=== PATIENT | female | born 1945 | race Caucasian/White ===

== ENCOUNTER 2020-02-05 07:22 | Outpatient (REF) | payer MEDICARE, SELFPAY ==
[2020-02-05 08:31] LABS: MANUAL DIFF FLAG NO
[2020-02-05 08:36] LABS: Basophils Percent Auto 0.8 % (0-2); Eosinophils Absolute Auto 0.2 X10*3/uL (0.0-0.4); Eosinophils Percent Auto 3.1 % (0-4); Hematocrit 39.8 % (37-47); Hemoglobin 12.9 g/dl (12.0-16.0); Imm Gran Abs Auto 0.01 X10*3/uL (0.00-0.03); Imm Gran Pct Auto 0.2 % (0.0-0.4); Lymphocytes Absolute Auto 1.6 X10*3/uL (1.2-4.9); Lymphocytes Percent Auto 33.2 % (20-40); Mean Corpuscular HGB Conc 32.4 g/dl (31.0-35.0); Mean Corpuscular Hemoglobin 31.7 pg (27.0-33.0); Mean Corpuscular Volume 97.8 fL (80-98); Mean Platelet Volume 8.3 fL (9.4-12.3); Monocytes Absolute Auto 0.5 X10*3/uL (0.1-1.2); Monocytes Percent Auto 10.6 % (2-11); Neutrophils Absolute Auto 2.5 X10*3/uL (2.0-8.3); Neutrophils Percent Auto 52.1 % (45-73); Platelet Count 238 X10*3/uL (160-400); Red Blood Count 4.07 X10*6/uL (4.20-5.50); Red Cell Distribution Width 12.5 % (11.0-16.0); White Blood Count 4.8 X10*3/uL (4.8-10.8)
[2020-02-05 08:38] LABS: Glucose Urine UA NEG (NEG); Leukocyte Esterase Urine 1+ (NEG); Nitrite Urine NEG (NEG); PH 5.5 (5.0-8.0); Specific Gravity - Urine 1.025 (1.005-1.025); Urine Blood 1+ (NEG); Urine Ketones NEG (NEG); Urine Protein NEG (NEG-TRACE)
[2020-02-05 08:39] LABS: Appearance Urine HAZY; Color Urine YELLOW
[2020-02-05 08:54] LABS: Alanine Aminotransferase 26 U/L (0-31); Alkaline Phosphatase 59 U/L (39-117); Anion Gap 10 (12-20); Aspartate Amino Transferase 28 U/L (5-31); Bilirubin Total 0.4 mg/dL (0.0-1.0); Blood Urea Nitrogen 17 mg/dL (9-16); Calcium 8.9 mg/dL (8.4-10.2); Carbon Dioxide 26 mmol/L (22-29); Chloride 109 mmol/L (96-108); Cholesterol 192 mg/dL; Estimated Glomerular Filt Rate > 60; Glucose Fasting 95 mg/dL (60-99); HDL Cholesterol 67 mg/dL; LDL Cholesterol Calculated 114 mg/dl; Potassium 4.1 mmol/l (3.3-5.1); Sodium 141 mmol/L (135-145); Total Protein 6.6 g/dL (6.5-8.0); Triglycerides 58 mg/dL
[2020-02-05 08:57] LABS: Bacteria Urine TRACE /LPF; Mucus Urine 1+ /LPF; Renal Epithelial Cells Urine 1+ /LPF; Squamous Epithelial Cell Urine 1+ /LPF
[2020-02-05 11:00] LABS: Folate 17.8 ng/mL (> or = 4.0); Vitamin B12 > 2000 pg/mL (200-900)
== END 2020-02-05 07:23 | disposition home or self-care (01) ==
LOC: HO.LAB 07:22
PROVIDERS: PCP Internal Medicine; Visit Provider Internal Medicine
DX: M85.80 Other specified disorders of bone density and structure, unspecified site (principal); E78.00 Pure hypercholesterolemia, unspecified; Z87.448 Personal history of other diseases of urinary system
CPT/HCPCS: 36415; 80053; 80061; 81001; 82607; 82746; 85025

== ENCOUNTER 2020-05-14 14:45 | Outpatient (REF) | payer MEDICARE, SELFPAY ==
--- NOTE | 2020-05-14 14:49 | MM_ITS ---
EXAMINATION: MM SCREENING DIGITAL BREAST TOMOSYNTHESIS, BILATERAL CLINICAL INFORMATION: Screening. Asymptomatic. The lifetime risk of breast cancer based on the Tyrer-Cuzick Model is 7%. COMPARISON: Mammography: 10/06/2018, 09/14/2017, 08/31/2016 TECHNIQUE: Digital breast tomosynthesis is performed in both the craniocaudal and mediolateral oblique views along with computer-aided detection (CAD). Synthesized 2D images are generated from the tomosynthesis. FINDINGS: There are scattered areas of fibroglandular density (ACR BI-RADS breast composition Category b). Breast tissue composition borders on heterogeneously dense. Parenchymal pattern is similar to prior exams. There are no significant masses, abnormal calcifications, or other abnormalities. No significant changes. MM/MM tomosynthesis screening BI IMPRESSION: No mammographic evidence of malignancy. ASSESSMENT: BI-RADS 1: Negative RECOMMENDATION: Routine annual mammography screening. This patient's information was entered into a reminder system with a target due date for their next mammogram.
== END 2020-05-14 14:46 | disposition home or self-care (01) ==
LOC: HO.MAMMO 14:45
PROVIDERS: PCP Internal Medicine; Visit Provider Internal Medicine
DX: Z12.31 Encounter for screening mammogram for malignant neoplasm of breast (principal)
CPT/HCPCS: 77063; 77067

== ENCOUNTER 2020-10-28 08:15 | Day surgery (SDC) | payer MEDICARE, SELFPAY ==
[2020-10-23 09:27] VITALS: BMI 31.2
--- NOTE | 2020-10-27 09:04 | HO.ANESPROP2 ---
HPI - Anesthesia Eval Consult details Narrative: 75yo F for Colonoscopy PMFSH Past Medical History Medical History Asthma Surgical History Surgical History History of tonsillectomy and adenoidectomy Hx of colonoscopy Social History Social History Patient Tobacco Use Status: Former Tobacco user Quit Date: 1999 Use of substances other than those prescribed or required for medical reasons: No Are you DNR?: No Advance Directives: No Advance Directives Information Provided: No Advance Directives on File: No Meds Allergies Allergy/AdvReac Type Severity Reaction Status Date / Time No Known Allergies Allergy Verified 10/28/20 08:28 Home Medications Medication Instructions Recorded Confirmed Last Taken Type albuterol sulfate 2 puff INHALATION Q4-6H PRN 10/23/20 10/23/20 Unknown History Exam Exam Date and Time: October 27, 2020 0904 Height,Weight and Vital Signs: Height 5 ft Weight 72.575 kg Assessment and Plan Assessment Anesthesia Assessment: Chart Reviewed
[2020-10-28 08:33] VITALS: BP 133/70; PULSE 69; RESP 18; TEMP 36.1; O2SAT 98
[2020-10-28] MEDS: Lactated Ringers 1,000 ML 100 ML IVCONT (08:43)
--- NOTE | 2020-10-28 08:56 | P.CONAN_ITS ---
[facility] Past Medical History Medical History Asthma Surgical History Surgical History History of tonsillectomy and adenoidectomy Hx of colonoscopy Social History Social History Patient Tobacco Use Status: Former Tobacco user Quit Date: 1999 Use of substances other than those prescribed or required for medical reasons: No Are you DNR?: No Advance Directives: No Advance Directives Information Provided: No Advance Directives on File: No Meds Allergies Allergy/AdvReac Type Severity Reaction Status Date / Time No Known Allergies Allergy Verified 10/28/20 08:28 Active Medications: Current Medications Generic Name Dose Route Start Last Admin Trade Name Freq PRN Reason Stop Dose Admin Albuterol Sulfate 2.5 mg 10/28/20 08:22 Albuterol Sulfate (0.083%) 2.5 Mg/3 Ml Vial.Neb INHALE ONCE PRN Shortness of Breath/Wheezing Lactated Ringer's 1,000 mls @ 100 mls/hr 10/28/20 08:30 10/28/20 08:43 Lr IVCONT 100 mls/hr .Q10H ELOINA Administration Home Medications Medication Instructions Recorded Confirmed Last Taken Type albuterol sulfate 2 puff INHALATION Q4-6H PRN 10/23/20 10/23/20 Unknown History Exam Exam Date and Time: October 28, 2020 0856 Height,Weight and Vital Signs: Height 5 ft Weight 72.575 kg Last Vital Signs Temp 96.9 F 10/28/20 08:33 Pulse 69 10/28/20 08:33 Resp 18 10/28/20 08:33 BP 133/70 10/28/20 08:33 Pulse Ox 98 10/28/20 08:33 Airway Mallampati Class: II TM Dist: >3cm Neck ROM: Full Heart: RRR Lungs: CTA
--- NOTE | 2020-10-28 09:14 | MHC.SHP ---
Pre-Procedural Eval Section A Date of Service: 10/28/20 The patient is an INPATIENT: No Changes since office visit: No Cold of Flu in the past 2 weeks, No New Medical Problems, No Changes in Medication and No Patient answered all questions The History & Physical has been completed within 30 days and I have reviewed it.: Yes Section B Chief Complaint: screening Allergies: Allergies Allergy/AdvReac Type Severity Reaction Status Date / Time No Known Allergies Allergy Verified 10/28/20 08:28 Plan I have reviewed the history and physical and performed a pertinent physical examination on my patient. No changes have occurred unless specified.
--- NOTE | 2020-10-28 09:44 | P.BOP_ITS ---
Brief Operative Note Date of Service: 10/28/20 Pre-op diagnosis: screening Post-op diagnosis: same Surgeon: Elliot Espinosa Anesthesia: MAC Was an Siding Coreboard Inspector used for this Procedure?: No Estimated blood loss (mL): 0 Pathology: none sent Condition: stable Disposition: PACU
[2020-10-28 09:47] VITALS: BP 95/45; PULSE 72; RESP 16; TEMP 36.6; O2SAT 97
[2020-10-28 10:01] VITALS: BP 115/66; PULSE 70; RESP 16; TEMP 36.6; O2SAT 97
--- NOTE | 2020-10-28 11:13 | HO.POSTANES ---
Post Anesthesia Evaluation Post Anesthesia Evaluation Vital Signs: Vital Signs Temp Pulse Resp BP Pulse Ox 10/28/20 10:01 97.8 F 70 16 115/66 97 10/28/20 09:47 97.8 F 72 16 95/45 L 97 10/28/20 08:33 96.9 F 69 18 133/70 98 Anesthesia: Monitored Mental Status: Awake Pain Control: Satisfactory Nausea/Vomiting: None Hydration: Adequate Anesthesia-Related Issues: No Anes. Related Issues
--- NOTE | 2020-10-28 20:13 | OP_ITS ---
SURGEON: Elliot Espinosa MD INDICATIONS: Colon cancer screening. PREOPERATIVE DIAGNOSIS: POSTOPERATIVE DIAGNOSIS: PROCEDURE PERFORMED: Colonoscopy to the terminal ileum. ESTIMATED BLOOD LOSS: COMPLICATIONS: ANESTHESIA: ASSISTANTS: SPECIMENS: MEDICATIONS: Monitored anesthesia care. DESCRIPTION OF PROCEDURE: History and physical performed. The risks and benefits of the procedure were explained to the patient. Informed consent was obtained. The patient was placed in a left lateral decubitus position. A digital rectal exam was performed and was found to be normal. The Olympus pediatric video colonoscope was introduced into the rectum and advanced to the cecum without difficulty. The cecum was identified by transillumination, palpation, and identification of ileocecal valve. Examination was performed and the scope was removed. She tolerated the procedure well and was taken to recovery area in stable condition. FINDINGS: The terminal ileum was examined and appeared normal. The visualized colonic mucosa was normal. The quality of the prep was good. There was mild sigmoid diverticulosis. Retroflexed examination was normal. No polyps were identified. IMPRESSION: Normal colonoscopy. RECOMMENDATIONS: 1. Follow up as needed. 2. Repeat colonoscopy is recommended in 10 years for average risk individuals. Screening is optional after age 75. MD CARLOS A Ornelas/[facility] / [id number]
== END 2020-10-28 10:33 | disposition home or self-care (01) ==
PROVIDERS: PCP Internal Medicine; Visit Provider Internal Medicine Gastroenterology
PROC: 0DJD8ZZ Inspection of Lower Intestinal Tract, Via Natural or Artificial Opening Endoscopic (ICD-10-PCS; CPT 45378; principal; 2020-10-28 09:30)
DX: Z12.11 Encounter for screening for malignant neoplasm of colon (principal); K57.30 Diverticulosis of large intestine without perforation or abscess without bleeding; J45.909 Unspecified asthma, uncomplicated; Z80.41 Family history of malignant neoplasm of ovary; Z79.899 Other long term (current) drug therapy; Z79.1 Long term (current) use of non-steroidal anti-inflammatories (NSAID); Z87.891 Personal history of nicotine dependence
CPT/HCPCS: G0121

== ENCOUNTER 2020-11-04 08:33 | Outpatient (REF) | payer MEDICARE, SELFPAY ==
--- NOTE | ~2020-11-04 | MM_ITS ---
EXAMINATION: BONE DENSITOMETRY CLINICAL INDICATION: Osteopenia. COMPARISON: Previous BD dated 10/24/2018 and baseline BD dated 10/19/2016. TECHNIQUE: Using a [employer] DXA System (software version: 13.1) manufactured by [employer], dual-energy x-ray absorptiometry was performed of the lumbar spine and left hip. The images are of good technical quality. Summary results are attached. FINDINGS: AP SPINE L1-L4: Current: BMD 1.007 g/cm2, Z-score 0.0, T-score -1.4, osteopenia, 3.7% decrease from previous, -1.4% decrease from baseline (<5% change is not significant). Prior: BMD 1.046 g/cm2. Baseline: BMD 1.021 g/cm2. LEFT FEMUR, NECK: Current: BMD 0.783 g/cm2, Z-score -0.1, T-score -1.8, osteopenia. Prior: BMD 0.841 g/cm2. Baseline: BMD 0.831 g/cm2. LEFT FEMUR, TOTAL: Current: BMD 0.877 g/cm2, Z-score 0.4, T-score -1.0, normal, 3.4% decrease from previous, 0.9% decrease from baseline (<5% change is not significant). Prior: BMD 0.908 g/cm2. Baseline: BMD 0.885 g/cm2. IDENTIFIED RISK FACTORS: Menopause. HISTORY OF FRACTURE: None listed. MEDICATIONS: Calcium supplements or multivitamin, vitamin D. MM/XR DEXA axial skeleton IMPRESSION: 1. DIAGNOSIS: Osteopenia based on the lowest T-score value of -1.8 in the femoral neck applying World Health Organization criteria. 2. 10-YEAR FRACTURE RISK PREDICTION, FRAX: Major osteoporotic fracture (clinical spine, forearm, hip or shoulder) 11.7%. Hip fracture 2.5%. 3. Treatment Recommendations: NOF guidelines recommend consideration for treatment in postmenopausal women and men age 50 and older presenting with the following: -A hip or vertebral (clinical or morphometric) fracture. -T-score less than or equal to -2.5 at the femoral neck or spine after appropriate evaluation to exclude secondary causes. -Low bone mass at the hip or spine and a 10-year fracture probability by FRAX of greater than or equal to 3% for hip fracture or greater than or equal to 20% for major osteoporotic fracture based on the [place] adapted WHO algorithm. 4. Other Recommendations: All treatment decisions require clinical judgment and consideration of individual patient factors, including patient preferences, comorbidities, previous drug use, risk factors not captured in the FRAX model (e.g. frailty, falls, vitamin D deficiency, increased bone turnover, interval significant decline in bone density) and possible under or overestimation of fracture risk by FRAX. Additional medical evaluation for secondary cause of low bone mineral density may be appropriate. FUTURE SCAN RECOMMENDATION: People with diagnosed cases of osteoporosis or at high risk for fracture should have regular bone mineral density tests. For patients eligible for Medicare, routine testing is allowed once every 2 years. The testing frequency can be increased to one year for patients who have rapidly progressing disease, those who are receiving or discontinuing medical therapy to restore bone mass, or have additional risk factors.
== END 2020-11-04 08:34 | disposition home or self-care (01) ==
LOC: HO.MAMMO 08:33
PROVIDERS: Visit Provider Internal Medicine
DX: Z13.820 Encounter for screening for osteoporosis (principal); M85.89 Other specified disorders of bone density and structure, multiple sites; Z78.0 Asymptomatic menopausal state
CPT/HCPCS: 77080

== ENCOUNTER 2021-02-17 10:34 | Outpatient (REF) | payer MEDICARE, SELFPAY ==
[2021-02-17 10:36] LABS: MANUAL DIFF FLAG NO
[2021-02-17 11:21] LABS: Basophils Percent Auto 0.5 % (0-2); Eosinophils Absolute Auto 0.2 X10*3/uL (0.0-0.4); Eosinophils Percent Auto 3.1 % (0-4); Hematocrit 40.3 % (37-47); Hemoglobin 12.9 g/dl (12.0-16.0); Imm Gran Abs Auto 0.01 X10*3/uL (0.00-0.03); Imm Gran Pct Auto 0.2 % (0.0-0.4); Lymphocytes Absolute Auto 1.9 X10*3/uL (1.2-4.9); Lymphocytes Percent Auto 33.3 % (20-40); Mean Corpuscular Hemoglobin 31.9 pg (27.0-33.0); Mean Corpuscular Volume 99.5 fL (80-98); Mean Platelet Volume 8.7 fL (9.4-12.3); Monocytes Absolute Auto 0.8 X10*3/uL (0.1-1.2); Monocytes Percent Auto 13.2 % (2-11); Neutrophils Absolute Auto 2.9 X10*3/uL (2.0-8.3); Neutrophils Percent Auto 49.7 % (45-73); Platelet Count 240 X10*3/uL (160-400); Red Blood Count 4.05 X10*6/uL (4.20-5.50); Red Cell Distribution Width 12.8 % (11.0-16.0); White Blood Count 5.8 X10*3/uL (4.8-10.8)
[2021-02-17 11:40] LABS: Alanine Aminotransferase 17 U/L (0-31); Albumin Level 3.8 g/dL (3.5-5.0); Alkaline Phosphatase 59 U/L (39-117); Anion Gap 12 (12-20); Aspartate Amino Transferase 21 U/L (5-31); Bilirubin Total 0.4 mg/dL (0.0-1.0); Blood Urea Nitrogen 17 mg/dL (9-16); Calcium 8.7 mg/dL (8.4-10.2); Carbon Dioxide 25 mmol/L (22-29); Chloride 110 mmol/L (96-108); Cholesterol 177 mg/dL; Estimated Glomerular Filt Rate > 60; Glucose Fasting 91 mg/dL (60-99); HDL Cholesterol 62 mg/dL; LDL Cholesterol Calculated 103 mg/dl; Sodium 143 mmol/L (135-145); Total Protein 6.4 g/dL (6.5-8.0); Triglycerides 60 mg/dL
[2021-02-17 11:41] LABS: Reflex LDLD? No
[2021-02-17 12:05] LABS: Appearance Urine HAZY; Color Urine YELLOW; Glucose Urine UA NEG (NEG); Leukocyte Esterase Urine 1+ (NEG); Nitrite Urine NEG (NEG); Specific Gravity - Urine 1.025 (1.005-1.025); Urine Blood NEG (NEG); Urine Ketones NEG (NEG); Urine Protein NEG (NEG-TRACE)
[2021-02-17 12:33] LABS: Bacteria Urine TRACE /LPF; Mucus Urine 1+ /LPF; RBC Urine 0-2 /HPF (0); Renal Epithelial Cells Urine 1+ /LPF; Squamous Epithelial Cell Urine 1+ /LPF
== END 2021-02-17 10:35 | disposition home or self-care (01) ==
LOC: HO.LNP 10:34
PROVIDERS: Visit Provider Internal Medicine
DX: E78.00 Pure hypercholesterolemia, unspecified (principal); R79.9 Abnormal finding of blood chemistry, unspecified
CPT/HCPCS: 80053; 80061; 81001; 81003; 85025

== ENCOUNTER 2022-02-16 11:28 | Outpatient (REF) | payer MEDICARE, SELFPAY ==
[2022-02-16 11:31] LABS: MANUAL DIFF FLAG NO
[2022-02-16 12:06] LABS: Appearance Urine Clear; Basophils Absolute Auto 0.1 X10*3/uL (0.0-0.2); Basophils Percent Auto 0.8 % (0-2); Color Urine Yellow; Eosinophils Absolute Auto 0.2 X10*3/uL (0.0-0.4); Eosinophils Percent Auto 2.7 % (0-4); Glucose Urine UA Negative (Negative); Hematocrit 39.6 % (37.0-47.0); Hemoglobin 12.8 g/dl (12.0-16.0); Imm Gran Abs Auto 0.02 X10*3/uL (0.00-0.03); Imm Gran Pct Auto 0.3 % (0.0-0.4); Leukocyte Esterase Urine Large (3+) (Negative); Lymphocytes Absolute Auto 2.1 X10*3/uL (1.2-4.9); Mean Corpuscular HGB Conc 32.3 g/dl (31.0-35.0); Mean Corpuscular Hemoglobin 31.7 pg (27.0-33.0); Mean Platelet Volume 8.9 fL (9.4-12.3); Monocytes Absolute Auto 0.8 X10*3/uL (0.1-1.2); Monocytes Percent Auto 11.9 % (2-11); Neutrophils Absolute Auto 3.4 x10*3/uL (2.0-8.3); Neutrophils Percent Auto 52.3 % (45-73); Nitrite Urine Negative (Negative); PH 5.5 (5.0-9.0); Platelet Count 260 X10*3/uL (160-400); Red Blood Count 4.04 X10*6/uL (4.20-5.50); Red Cell Distribution Width 12.7 % (11.0-16.0); UMIC TRIGGER UA YES; Urine Blood Negative (Negative); Urine Ketones Negative (Negative); Urine Protein Negative (Neg-Trace); White Blood Count 6.6 X10*3/uL (4.8-10.8)
[2022-02-16 12:10] LABS: Bacteria Urine None Seen (None Seen); Hyaline Casts Urine 0-2 /LPF (0-2); RBC Urine 0-2 /HPF (0-2); Squamous Epithelial Cell Urine 0-2 /HPF (0-2); WBC Urine 21-50 /HPF (0-5)
[2022-02-16 12:40] LABS: Alanine Aminotransferase 20 U/L (0-31); Alkaline Phosphatase 61 U/L (39-117); Anion Gap 15 (12-20); Aspartate Amino Transferase 25 U/L (5-31); Bilirubin Total 0.5 mg/dL (0.0-1.0); Blood Urea Nitrogen 15 mg/dL (9-16); Carbon Dioxide 25 mmol/L (22-29); Chloride 107 mmol/L (96-108); Cholesterol 184 mg/dL; Estimated Glomerular Filt Rate > 60; Glucose Fasting 98 mg/dL (60-99); HDL Cholesterol 70 mg/dL; LDL Cholesterol Calculated 100 mg/dl; Potassium 4.1 mmol/L (3.3-5.1); Sodium 143 mmol/L (135-145); Total Protein 6.9 g/dL (6.5-8.0); Triglycerides 70 mg/dL
== END 2022-02-16 11:29 | disposition home or self-care (01) ==
LOC: HO.LNP 11:28
PROVIDERS: Visit Provider Internal Medicine
DX: E78.00 Pure hypercholesterolemia, unspecified (principal)
CPT/HCPCS: 80053; 80061; 81001; 85025

== ENCOUNTER 2022-06-28 06:06 | Day surgery (SDC) | payer MEDICARE, SELFPAY ==
[2022-06-22 13:12] VITALS: BMI 31.9
[2022-06-22 13:24] VITALS: BMI 31.1
--- NOTE | 2022-06-24 09:00 | MHC.SHP ---
Pre-Procedural Eval Section A Date of Service: 06/24/22 The patient is an INPATIENT: No Changes since office visit: No Cold of Flu in the past 2 weeks, No New Medical Problems, No Changes in Medication and No Patient answered all questions The History & Physical has been completed within 30 days and I have reviewed it.: Yes Section B Chief Complaint: Age-related nuclear cataract, left eye Allergies: Allergies Allergy/AdvReac Type Severity Reaction Status Date / Time No Known Allergies Allergy Verified 10/28/20 08:28 Plan Diagnosis/Plan: Unchanged I have reviewed the history and physical and performed a pertinent physical examination on my patient. No changes have occurred unless specified. Time Spent With Patient Time: Total time managing care of this patient today ____ minutes.
[2022-06-28 06:25] VITALS: BP 143/69; PULSE 73; RESP 16; TEMP 36.3; O2SAT 98
[2022-06-28] MEDS: Lactated Ringers 500 ML 50 ML IV (06:30)
[2022-06-28] MEDS: Tetracaine HCl/PF 0.5% Oph Sol 4 ML DROPS 1 DROP EYE-LEFT (06:30)
[2022-06-28] MEDS: Cyclopentolate 1 % Ophth Sol 2 ML DRPBTL 1 DROP EYE-LEFT ×3 (06:30→06:41)
[2022-06-28] MEDS: Tropicamide 1 % Ophth Sol 3 ML BTL 1 DROP EYE-LEFT ×3 (06:31→06:42)
[2022-06-28] MEDS: Ketorolac Tromethamine 0.5% Op 5 ML DROPS 1 DROP EYE-LEFT ×3 (06:34→06:43)
[2022-06-28] MEDS: Phenylephrine HCL 2.5% Oph SoL 2 ML BOTTLE 1 DROP EYE-LEFT ×3 (06:35→06:45)
--- NOTE | 2022-06-28 07:10 | P.CONAN_ITS ---
[facility] Past Medical History Medical History Asthma Family History Family history of problems with anesthesia: No Surgical History Surgical History (Updated 06/22/22 @ 13:23 by Julissa Hansen RN) History of tonsillectomy and adenoidectomy Hx of colonoscopy History of Problems with Anesthesia: No Social History Social History Are you a primary healthcare or medical to a significant other at home: No Do you presently have visiting nurse or other home services: No Patient Tobacco Use Status: Former Tobacco user Quit Date: 1999 Tobacco use type: Cigarette Use of substances other than those prescribed or required for medical reasons: No Have you been hit, kicked, punched, or otherwise hurt by someone within the past year? If so, by whom?: No Are you DNR?: No Advance Directives: No Advance Directives Information Provided: Yes Advance Directives on File: No Recently lost weight without trying: No Nutrition Risks: No Nutritional Risk Meds Allergies Allergy/AdvReac Type Severity Reaction Status Date / Time No Known Allergies Allergy Verified 10/28/20 08:28 Active Medications: Current Medications Lactated Ringer's (Lr) 500 mls @ 50 mls/hr IV .Q10H ELOINA Stop: 06/28/22 16:14 Last Admin: 06/28/22 06:30 Dose: 50 mls/hr Povidone Iodine (Povidone Iodine 5 % Ophth Soln 30 Ml Bottle) 1 appl EYE-LEFT PREOP PRN PRN Reason: Pre-Op Surgical Implant Prophy Home Medications Medication Instructions Recorded Confirmed Last Taken Type albuterol sulfate 90 mcg/actuation 2 puff inhalation Q4-6H PRN 10/23/20 06/22/22 Unknown History aerosol inhaler Shortness Of Breath Or Wheezing Exam Exam Date and Time: June 28, 2022 0710 Height,Weight and Vital Signs: Height 5 ft 1 in Weight 74.843 kg Last Vital Signs Temp 97.3 F 06/28/22 06:25 Pulse 73 06/28/22 06:25 Resp 16 06/28/22 06:25 BP 143/69 H 06/28/22 06:25 Pulse Ox 98 06/28/22 06:25 O2 Del Method 06/28/22 06:25 Airway Mallampati Class: II (Missing a couple) TM Dist: >3cm Neck ROM: Full Heart: rrr Lungs: cta bl Assessment and Plan Assessment Anesthesia Assessment: Anesthesia Plan Discussed and Chart Reviewed Final Anesthetic Review Family History of Problems with Anesthesia: No History of Problems with Anesthesia: No NPO: Yes ASA Class: II Final Preanesthetic Review: No Changes in Pt Med Stat, Meds/Allgs Chart Reviewed and Consent Obtained/Reviewed Patient Risk: Intermediate Procedure Risk: Intermediate Anesthetic Plan Anesthetic Plan: MAC: Disposition: Standard PACU
--- NOTE | 2022-06-28 07:53 | HO.PNOPHT ---
Ophthalmology Procedure Procedure Date of Service: 06/28/22 Ophthalmology Viscoelastic: Heallaura Duet Dual Pack Pro Ophthalmology Lenses: TECNIS [id number] (24.5) Procedure Notes: PREOPERATIVE DIAGNOSIS: Decreased visual acuity left eye secondary to cataract POSTOPERATIVE DIAGNOSIS: Same PROCEDURE: Left cataract extraction with intraocular lens insertion SURGEON: Robinson Noonan M.D. ANESTHESIA: Topical/MAC ESTIMATED BLOOD LOSS: None COMPLICATIONS: None After obtaining informed consent, the patient was brought to the operation room suite and placed in the supine position. After adequate sedation per anesthesia, topical drops of Tetracaine were given to the left eye. The eye was then prepped and draped in the usual sterile fashion. The operating room microscope was then positioned over the operative eye and a lid speculum placed. A paracentesis was created. Viscoelastic was then instilled into the anterior chamber. A three plane incision was then created temporally, utilizing a 2.85 mm keratome. Capsulotomy forceps were then utilized to create a circular tear capsulotomy. Hydrodissection and hydrodelineation were carried out until adequate mobilization of the nucleus occurred. Phacoemulsification was then utilized to remove the dense central nucleus followed by removal of the cortical material utilizing the automated aspiration irrigation unit. Viscoat elastic was instilled into the posterior capsular bag followed by placement of a posterior chamber intraocular lens without difficulty. The residual Viscoat elastic was then removed utilizing the automated IA machine. The wound was check and found to be watertight. The patient tolerated the procedure well and the lid speculum was removed. Intracameral injection of Vigamox 0.1 mL followed by a subtenon injection of Kenalog-40 0.2 mL were administered. The patient will be seen in the a.m.
[2022-06-28 08:21] VITALS: BP 136/69; PULSE 62; RESP 18; TEMP 36.2; O2SAT 100
== END 2022-06-28 08:25 | disposition home or self-care (01) ==
PROVIDERS: PCP Internal Medicine; Visit Provider Ophthalmology
PROC: (CPT 66985; principal; 2022-06-28 08:00)
DX: H25.12 Age-related nuclear cataract, left eye (principal); H52.4 Presbyopia; H02.834 Dermatochalasis of left upper eyelid; J45.909 Unspecified asthma, uncomplicated; Z87.891 Personal history of nicotine dependence; Z79.899 Other long term (current) drug therapy
CPT/HCPCS: 66984; J2250; J3301; V2632

== ENCOUNTER 2022-09-06 08:33 | Day surgery (SDC) | payer MEDICARE, SELFPAY ==
[2022-08-30 10:47] VITALS: BMI 31.9
--- NOTE | 2022-09-03 08:42 | MHC.SHP ---
Pre-Procedural Eval Section A Date of Service: 09/03/22 The patient is an INPATIENT: No Changes since office visit: No Cold of Flu in the past 2 weeks, No New Medical Problems, No Changes in Medication and No Patient answered all questions The History & Physical has been completed within 30 days and I have reviewed it.: Yes Section B Chief Complaint: Age-related nuclear cataract, right eye Allergies: Allergies Allergy/AdvReac Type Severity Reaction Status Date / Time No Known Allergies Allergy Verified 10/28/20 08:28 Plan Diagnosis/Plan: Unchanged I have reviewed the history and physical and performed a pertinent physical examination on my patient. No changes have occurred unless specified. Time Spent With Patient Time: Total time managing care of this patient today ____ minutes.
--- NOTE | 2022-09-06 09:43 | HO.ANESPROP2 ---
[facility] Past Medical History Medical History Asthma Family History Family history of problems with anesthesia: No Surgical History Surgical History History of tonsillectomy and adenoidectomy Hx of colonoscopy Hx of left cataract extraction History of Problems with Anesthesia: No Social History Social History Are you a primary child care giver to a significant other at home: No Do you presently have visiting nurse or other home services: No Patient Tobacco Use Status: Former Tobacco user Quit Date: 1999 Tobacco use type: Cigarette Use of substances other than those prescribed or required for medical reasons: No Have you been hit, kicked, punched, or otherwise hurt by someone within the past year? If so, by whom?: No Are you DNR?: No Advance Directives: No Advance Directives Information Provided: Yes (brochure mailed) Advance Directives on File: No Recently lost weight without trying: No Nutrition Risks: Surgical patient >75years Meds Allergies Allergy/AdvReac Type Severity Reaction Status Date / Time No Known Allergies Allergy Verified 10/28/20 08:28 Active Medications: Current Medications Albuterol Sulfate (Albuterol Sulfate (0.083%) 2.5 Mg/3 Ml Vial.Neb) 2.5 mg INHALE ONCE PRN PRN Reason: Shortness of Breath/Wheezing Cyclopentolate HCl (Cyclopentolate 1 % Ophth Aria 2 Ml Drpbtl) 1 drop EYE-RIGHT Q5M ELOINA Stop: 09/06/22 09:56 Lactated Ringer's (Lr) 500 mls @ 50 mls/hr IV .Q10H ELOINA Stop: 09/06/22 19:44 Ketorolac Tromethamine (Ketorolac Tromethamine 0.5% Op 5 Ml Drops) 1 drop EYE-RIGHT Q5M ELOINA Stop: 09/06/22 09:56 Moxifloxacin HCl (Moxifloxacin Hcl 0.5 % Oph Aria 3 Ml Drpbtl) 1 drop EYE-RIGHT POSTOP ONE Stop: 09/06/22 09:41 Phenylephrine HCl (Phenylephrine Hcl 2.5% Oph Aria 2 Ml Bottle) 1 drop EYE-RIGHT Q5M ELOINA Stop: 09/06/22 09:56 Povidone Iodine (Povidone Iodine 5 % Ophth Soln 30 Ml Bottle) 1 appl EYE-RIGHT PREOP PRN PRN Reason: Pre-Op Surgical Implant Prophy Tetracaine HCl (Tetracaine Hcl/Pf 0.5% Oph Aria 4 Ml Drops) 1 drop EYE-RIGHT PREOP ONE Stop: 09/06/22 09:41 Triamcinolone Acetonide (Triamcinolone Acetonide 40 Mg/Ml Vial) 40 mg IM POSTOP ONE Stop: 09/06/22 09:41 Tropicamide (Tropicamide 1 % Ophth Aria 3 Ml Btl) 1 drop EYE-RIGHT Q5M ELOINA Stop: 09/06/22 09:56 Home Medications Medication Instructions Recorded Confirmed Last Taken Type albuterol sulfate 90 mcg/actuation 2 puff inhalation Q4-6H PRN 10/23/20 08/30/22 Unknown History aerosol inhaler Shortness Of Breath Or Wheezing Exam Exam Date and Time: September 06, 2022 0943 Height,Weight and Vital Signs: Height 5 ft 1 in Weight 76.657 kg Airway Mallampati Class: II TM Dist: >3cm Neck ROM: Full Loose/Missing/Broken Teeth: No Heart: RRR Lungs: CTA Assessment and Plan Final Anesthetic Review Family History of Problems with Anesthesia: No History of Problems with Anesthesia: No NPO: Yes ASA Class: II Final Preanesthetic Review: Meds/Allgs Chart Reviewed, Consent Obtained/Reviewed and Anes Risks/Benef Reviewed Patient Risk: Low Anesthetic Plan Anesthetic Plan: MAC: Disposition: Standard PACU
[2022-09-06 09:44] VITALS: BP 130/60; PULSE 79; RESP 18; TEMP 36.6; O2SAT 97
[2022-09-06] MEDS: Ketorolac Tromethamine 0.5% Op 5 ML DROPS 1 DROP EYE-RIGHT ×3 (10:06→10:11)
[2022-09-06] MEDS: Phenylephrine HCL 2.5% Oph SoL 2 ML BOTTLE 1 DROP EYE-RIGHT ×3 (10:06→10:10)
[2022-09-06] MEDS: Tetracaine HCl/PF 0.5% Oph Sol 4 ML DROPS 1 DROP EYE-RIGHT (10:06)
[2022-09-06] MEDS: Cyclopentolate 1 % Ophth Sol 2 ML DRPBTL 1 DROP EYE-RIGHT ×3 (10:07→10:11)
[2022-09-06] MEDS: Tropicamide 1 % Ophth Sol 3 ML BTL 1 DROP EYE-RIGHT ×3 (10:07→10:13)
[2022-09-06] MEDS: Lactated Ringers 500 ML 50 ML IV (10:11)
--- NOTE | 2022-09-06 10:59 | HO.PNOPHT ---
Ophthalmology Procedure Procedure Date of Service: 09/06/22 Ophthalmology Viscoelastic: Raheel Wellingtont Dual Pack Pro Ophthalmology Lenses: TECYUSUF [id number] (24) Procedure Notes: PREOPERATIVE DIAGNOSIS: Decreased visual acuity right eye secondary to cataract POSTOPERATIVE DIAGNOSIS: Same PROCEDURE: Right cataract extraction with intraocular lens insertion SURGEON: Robinson Noonan M.D. ANESTHESIA: Topical/MAC ESTIMATED BLOOD LOSS: None COMPLICATIONS: None After obtaining informed consent, the patient was brought to the operating room suite and placed in the supine position. After adequate sedation per anesthesia, topical drops of Tetracaine were given to the right eye. The eye was then prepped and draped in the usual sterile fashion. The operating room microscope was then positioned over the operative eye and a lid speculum placed. A paracentesis was created. Viscoelastic was then instilled into the anterior chamber. A three plane incision was then created temporally, utilizing a 2.85 mm keratome. Capsulotomy forceps were then utilized to create a circular tear capsulotomy. Hydrodissection and hydrodelineation were carried out until adequate mobilization of the nucleus occurred. Phacoemulsification was then utilized to remove the dense central nucleus followed by removal of the cortical material utilizing the automated aspiration irrigation unit. Viscoelastic was instilled into the posterior capsular bag followed by placement of a posterior chamber intraocular lens without difficulty. The residual Viscoelastic was then removed utilizing the automated IA machine. The wound was checked and found to be watertight. The patient tolerated the procedure well and the lid speculum was removed. Intracameral injection of Vigamox 0.1 mL followed by a subtenon injection of Kenalog-40 0.2 mL were administered. The patient will be seen in the a.m.
[2022-09-06 11:21] VITALS: BP 123/69; PULSE 61; RESP 16; TEMP 36.5; O2SAT 100
== END 2022-09-06 11:33 | disposition home or self-care (01) ==
PROVIDERS: PCP Internal Medicine; Visit Provider Ophthalmology
PROC: (CPT 66985; principal; 2022-09-06 11:00)
DX: H25.11 Age-related nuclear cataract, right eye (principal); H54.7 Unspecified visual loss; Z96.1 Presence of intraocular lens; J45.909 Unspecified asthma, uncomplicated; L71.9 Rosacea, unspecified; M19.90 Unspecified osteoarthritis, unspecified site; Z79.899 Other long term (current) drug therapy; Z87.891 Personal history of nicotine dependence
CPT/HCPCS: 66984; J2250; J3010; J3301; V2632

== ENCOUNTER 2023-02-22 10:43 | Outpatient (REF) | payer MEDICARE, SELFPAY ==
[2023-02-22 10:47] LABS: MANUAL DIFF FLAG NO
[2023-02-22 11:18] LABS: Appearance Urine Clear; Color Urine Yellow; Glucose Urine UA Negative (Negative); Leukocyte Esterase Urine Moderate (2+) (Negative); Nitrite Urine Negative (Negative); PH 5.5 (5.0-9.0); Specific Gravity - Urine 1.015 (1.005-1.025); UMIC TRIGGER UACC YES; Urine Blood Trace (Negative); Urine Ketones Negative (Negative); Urine Protein Negative (Neg-Trace)
[2023-02-22 11:25] LABS: Bacteria Urine Trace (None Seen); Basophils Percent Auto 0.6 % (0-2); Eosinophils Absolute Auto 0.1 X10*3/uL (0.0-0.4); Eosinophils Percent Auto 1.8 % (0-4); Hematocrit 42.1 % (37.0-47.0); Hemoglobin 13.8 g/dl (12.0-16.0); Hyaline Casts Urine 0-2 /LPF (0-2); Imm Gran Abs Auto 0.02 X10*3/uL (0.00-0.03); Imm Gran Pct Auto 0.3 % (0.0-0.4); Lymphocytes Absolute Auto 1.9 X10*3/uL (1.2-4.9); Lymphocytes Percent Auto 27.9 % (20-40); Mean Corpuscular HGB Conc 32.8 g/dl (31.0-35.0); Mean Corpuscular Hemoglobin 31.9 pg (27.0-33.0); Mean Corpuscular Volume 97.2 fL (80.0-98.0); Mean Platelet Volume 8.7 fL (9.4-12.3); Monocytes Absolute Auto 0.8 X10*3/uL (0.1-1.2); Monocytes Percent Auto 12.2 % (2-11); Neutrophils Absolute Auto 3.9 x10*3/uL (2.0-8.3); Neutrophils Percent Auto 57.2 % (45-73); Platelet Count 254 X10*3/uL (160-400); Red Blood Count 4.33 X10*6/uL (4.20-5.50); Red Cell Distribution Width 12.5 % (11.0-16.0); UACC Culture Trigger YES; WBC Urine 21-50 /HPF (0-5); White Blood Count 6.7 X10*3/uL (4.8-10.8)
[2023-02-22 11:47] LABS: Alanine Aminotransferase 19 U/L (0-31); Albumin Level 4.1 g/dL (3.5-5.0); Alkaline Phosphatase 60 U/L (39-117); Anion Gap 15 (12-20); Aspartate Amino Transferase 23 U/L (5-31); Bilirubin Total 0.6 mg/dL (0.0-1.0); Blood Urea Nitrogen 17 mg/dL (9-16); Calcium 9.6 mg/dL (8.4-10.2); Carbon Dioxide 25 mmol/L (22-29); Chloride 107 mmol/L (96-108); Cholesterol 196 mg/dL (<200); Estimated Glomerular Filt Rate > 60; Glucose Fasting 95 mg/dL (60-99); HDL Cholesterol 70 mg/dL (>40); LDL Cholesterol Calculated 111 mg/dL (<100); Potassium 3.9 mmol/L (3.3-5.1); Sodium 143 mmol/L (135-145); Total Protein 7.4 g/dL (6.5-8.0); Triglycerides 77 mg/dL (<150)
== END 2023-02-22 10:44 | disposition home or self-care (01) ==
LOC: HO.LNP 10:43
PROVIDERS: Visit Provider Internal Medicine
DX: E78.00 Pure hypercholesterolemia, unspecified (principal); R82.90 Unspecified abnormal findings in urine
CPT/HCPCS: 80053; 80061; 81001; 85025; 87086

== ENCOUNTER 2023-03-21 13:24 | Outpatient (REF) | payer MEDICARE, SELFPAY ==
--- NOTE | ~2023-03-21 | XR_ITS ---
EXAMINATION: XR CHEST CLINICAL INFORMATION: Reason for Exam PERSISTENT COUGH COMPARISON: None TECHNIQUE: 2 views of the chest FINDINGS: Lines and tubes: None. Clear lungs. No pleural effusion. No pneumothorax. Normal cardiomediastinal silhouette. XR/XR chest 2V IMPRESSION: * Clear lungs.
== END 2023-03-21 13:25 | disposition home or self-care (01) ==
LOC: HO.XRAY 13:24
PROVIDERS: PCP Internal Medicine; Visit Provider Internal Medicine
DX: R05.3 Chronic cough (principal)
CPT/HCPCS: 71046

== ENCOUNTER 2024-02-28 11:18 | Outpatient (REF) | payer MEDICARE, SELFPAY ==
[2024-02-28 11:21] LABS: MANUAL DIFF FLAG NO
[2024-02-28 11:44] LABS: Basophils Percent Auto 0.7 % (0-2); Eosinophils Absolute Auto 0.2 X10*3/uL (0.0-0.4); Hematocrit 39.7 % (37.0-47.0); Hemoglobin 12.9 g/dl (12.0-16.0); Imm Gran Abs Auto 0.01 X10*3/uL (0.00-0.03); Imm Gran Pct Auto 0.2 % (0.0-0.4); Lymphocytes Percent Auto 34.7 % (20-40); Mean Corpuscular HGB Conc 32.5 g/dl (31.0-35.0); Mean Corpuscular Hemoglobin 32.1 pg (27.0-33.0); Mean Corpuscular Volume 98.8 fL (80.0-98.0); Mean Platelet Volume 8.5 fL (9.4-12.3); Monocytes Absolute Auto 0.7 X10*3/uL (0.1-1.2); Monocytes Percent Auto 12.6 % (2-11); Neutrophils Absolute Auto 2.8 x10*3/uL (2.0-8.3); Neutrophils Percent Auto 48.8 % (45-73); Platelet Count 230 X10*3/uL (160-400); Red Blood Count 4.02 X10*6/uL (4.20-5.50); Red Cell Distribution Width 12.8 % (11.0-16.0); White Blood Count 5.7 X10*3/uL (4.8-10.8)
[2024-02-28 11:47] LABS: Appearance Urine Clear; Color Urine Yellow; Glucose Urine UA Negative (Negative); Leukocyte Esterase Urine Moderate (2+) (Negative); Nitrite Urine Negative (Negative); PH 5.5 (5.0-9.0); Specific Gravity - Urine 1.025 (1.005-1.025); UMIC TRIGGER UACC YES; Urine Blood Negative (Negative); Urine Ketones Negative (Negative); Urine Protein Negative (Neg-Trace)
[2024-02-28 11:53] LABS: Bacteria Urine Trace (None Seen); Hyaline Casts Urine 0-2 /LPF (0-2); RBC Urine 0-2 /HPF (0-2); UACC Culture Trigger YES; WBC Urine 21-50 /HPF (0-5)
[2024-02-28 12:10] LABS: Alanine Aminotransferase 24 U/L (0-31); Albumin Level 3.9 g/dL (3.5-5.0); Alkaline Phosphatase 60 U/L (39-117); Anion Gap 13 (12-20); Aspartate Amino Transferase 34 U/L (5-31); Bilirubin Total 0.3 mg/dL (0.0-1.0); Blood Urea Nitrogen 21 mg/dL (9-16); Calcium 9.1 mg/dL (8.4-10.2); Carbon Dioxide 25 mmol/L (22-29); Chloride 108 mmol/L (96-108); Cholesterol 178 mg/dL (<200); Estimated Glomerular Filt Rate > 60; Glucose Fasting 90 mg/dL (60-99); HDL Cholesterol 74 mg/dL (>40); LDL Cholesterol Calculated 94 mg/dL (<100); Sodium 142 mmol/L (135-145); Total Protein 6.7 g/dL (6.5-8.0); Triglycerides 53 mg/dL (<150)
== END 2024-02-28 11:19 | disposition home or self-care (01) ==
LOC: HO.LNP 11:18
PROVIDERS: Visit Provider Internal Medicine
DX: E78.00 Pure hypercholesterolemia, unspecified (principal); Z87.448 Personal history of other diseases of urinary system
CPT/HCPCS: 80053; 80061; 81001; 85025; 87086

== ENCOUNTER 2025-03-01 10:38 | Outpatient (REF) | payer MEDICARE, SELFPAY ==
--- OUTSIDE RECORDS SUMMARY | 2024-02-28 03:00 | XMS_ITS ---
Author Organization Edy Cabrales MD Address [address] [place], [place] [id number] Care Team Providers Care Second Miller Name Role Phone Edy Cabrales Primary Care Provider [phone] Results Component Value Reference Range Notes Complete Blood Count Auto Di ff Reviewed date:02/28/2024 12:39:17 PM Interpretation: Performing Lab:[facility], [address] [place] [phone] Notes/Report: White Blood Count 5.7 4.8-10.8 X10*3/uL [...] NRBC Abs Auto 0.000 0.0-0.012 X10*3/uL Comprehensive [place]. Panel Fa st Reviewed date:02/28/2024 12:27:22 PM Interpretation: Performing Lab:[address] [phone] Notes/Report: Sodium 142 135-145 mmol/L Potassium 4.0 3.3-5.1 mmol/L Chloride 108 96-108 mmol/L Carbon Dioxide 25 22-29 mmol/L Anion Gap 13 12-20 Blood Urea Nitrogen 21 9-16 mg/dL Creatinine 0.79 0.5-1.4 mg/dL Estimated Glomerular Filt Rate > 60 NOTE: For -[place]i individuals, multiply the result by 1.210. Chronic [...] Panel Reviewed date:02/28/2024 12:13:42 PM Interpretation: Performing Lab:[address] [phone] Notes/Report: Triglycerides 53 <150 mg/dL Desirable Triglyceride: [...] t Reviewed date:02/28/2024 12:38:58 PM Interpretation: Performing Lab:[facility], [address] [place] [phone] Notes/Report: [id number] Urine, Clean Catch Color Urine Yellow Appearance Urine Clear PH 5.5 5.0-9.0 Glucose Urine UA Negative Negative mg/dL Urine Blood Negative Negative Specific [place] - Urine 1.025 1.005-1.025 Urine Protein Negative [...] Date Provider Diagnosis Edy Cabrales MD [address] [place], [place] [phone] 02/28/2024 Edy Cabrales Pure hypercholestero lemia E78.00 and History of hematuria Z87.448 Assessments Encounter Date Diagnosis (ICD Code) Assessment Notes Treatment Notes Treatment Clinical Notes Section Notes 02/28/2024 Pure hypercholesterolemia (ICD-10 - E78.00) 02/28/2024 History of hematuria (ICD-10 - Z87.448) Plan Of Treatment Next Appt Details Provider Name:Edy Ramirez ier, 03/08/2025 11:00:00 AM, [address] [place] [address], [address], [place], [place], [phone], Progress Notes * Honorio VENTURAOB:1945 (79 yo F)Acc No.[id number]:02/28/2024 Progress Note Patient: Lynne BALES Provider: Lyubov Cabrales MD :1945 A ge:78 Y S ex:Female Date:02/28/2024 Address:[address] [place] [address] , [facility] Subjective: * Chief Complaints: * 1 . Fastinf labs. * Medical History: Objective: * Vitals: Assessment: * Assessment: 1. P ure hypercholesterolemia - E78.00 (Primary) 2 . H istory of hematuria - Z87.448 Plan: * Treatment: 2. H istory of hematuria L AB: Complete Blood Count Auto Diff (Collection Date & Time - 02/28/2024 07:00 AM) L AB: Comprehensive [place]. Panel Fast (Collection Date & Time - [...] Provider: Lyubov Cabrales MD Date: Generated for Migeli brent/Luis/eTmathewsmitting on: 12:03 PM EDT
--- OUTSIDE RECORDS SUMMARY | 2024-03-06 06:30 | XMS_ITS ---
Author Organization Edy Cabrales MD Address [address] [place], [place] [phone] Care Team Providers Care Architectural Job Captain Name Role Phone Edy Cabrales Primary Care [...] Date Provider Diagnosis Edy Cabrales MD [address] [place], [place] [phone] 03/06/2024 Edy Cabrales Osteopenia determine d by [...] negative screen Next Appt Details Provider Name:Edy Ramirez ier, 03/08/2025 11:00:00 AM, [address], [address], [place], [place], [phone], Progress Notes * Honorio VENTURAOB:1945 (79 yo F)Acc No.[id number]:03/06/2024 Patient: Lynne Looney Provider: Lyubov Cabrales MD :1945 A ge:78 Y S ex:Female Date:03/06/2024 Address:[address] [place] [address] , [place] [address] Subjective: * Chief Complaints: * R eview [...] mg/dL Urine Blood Negative Negative - Specific [place] - Urine 1.025 1.005-1.025 - Urine Protein [...] Auto 0.000 0.0-0.012 - X10*3/uL L ab:Comprehensive [place]. Panel Fast (Order Date - 02/28/2024) (Collection [...] Cabrales MD Date: 05/06/2023 Generated for Kaylene kennedy/Luis/Patrickitting on: 12:03 PM EDT History and Physical Notes * HPI (History [...] Total Score: 0 Interpretation and Intervention Depression Lee Annterrie wojciech Findings: Negative Follow-Up for Depression: : review [...] e , no masses palpable FEMALE GENITOURINARY: material planner in room , non-palpable ovaries ORAL CAVITY: mucosa moist
--- OUTSIDE RECORDS SUMMARY | 2025-03-01 03:30 | XMS_ITS ---
Author Organization Edy Cabrales MD Address [address] [place], [place] [id number] Care Team Providers Care Entry Driver Operator Name Role Phone Edy Cabrales Primary Care Provider Results Component Value Reference Range Notes Complete Blood Count Auto Di ff (Not yet reviewed by provider) Interpretation: Performing Lab:[facility], [address] [place] [phone] Notes/Report: White Blood Count 6.1 4.8-10.8 X10*3/uL [...] NRBC Abs Auto 0.000 0.0-0.012 X10*3/uL Comprehensive [place]. Panel Fa st (Not yet reviewed by provider) Interpretation: Performing Lab:[facility], [address] [place] [phone] Notes/Report: Sodium 142 135-145 mmol/L Potassium 3.9 [...] Alkaline Phosphatase 70 39-117 U/L Lipid Panel (Not yet reviewe d by provider) Interpretation: Performing Lab:[facility], [address] [place] [phone] Notes/Report: Triglycerides 63 <150 mg/dL Desirable Triglyceride: [...] liver disease. UA ClnCatch+Micro w/rflx Cul t (Not yet reviewed by provider) Interpretation: Performing Lab:[facility], [address] [place] [phone] Notes/Report: Urine, Clean Catch Color Urine Yellow Appearance Urine Clear PH 5.5 5.0-9.0 Glucose Urine UA Negative Negative mg/dL Urine Blood Trace Negative Specific [place] - Urine 1.020 1.005-1.025 Urine Protein Negative [...] Location Date Provider Diagnosis Edy Cabrales MD [address] [place] [address] [place] [phone] 03/01/2025 Edy Cabrales Pure hypercholestero lemia E78.00 Assessments Encounter Date Diagnosis (ICD Code) Assessment Notes Treatment Notes Treatment Clinical Notes Section Notes 03/01/2025 Pure hypercholesterolemia (ICD-10 - E78.00) Plan Of Treatment Pending Test Test Name Order Date Complete Blood Count Auto Diff 5 Comprehensive [place]. Panel Fast 5 Lipid Panel 03/01/2025 UA ClnCatch+Micro w/rflx Cult 03/01/2025 Next Appt Details Provider Name:Edy moreland, 03/08/2025 11:00:00 AM, [address] [place] [address], Suite [facility], [place], [place], [phone], Progress Notes * Grecia VENTURA:1945 (79 yo F)Acc No.[id number]:03/01/2025 Progress Note Patient: Lynne BALES Provider: Lyubov Cabrales MD :1945 A ge:79 Y S ex:Female Date:03/01/2025 Address:[address] [place] [address] Subjective: * Chief Complaints: * 1 . [...] Lyubov Cabrales MD Date: Generated for Kaylene kennedy/Luis/Patrickitting on: 12:03 PM EDT
[2025-03-01 10:42] LABS: MANUAL DIFF FLAG NO
[2025-03-01 11:16] LABS: Appearance Urine Clear; Glucose Urine UA Negative (Negative); PH 5.5 (5.0-9.0); Specific Gravity - Urine 1.020 (1.005-1.025); UMIC TRIGGER UACC YES
[2025-03-01 11:20] LABS: Hematocrit 39.4 % (37.0-47.0); Hemoglobin 12.6 g/dl (12.0-16.0); Imm Gran Abs Auto 0.01 X10*3/uL (0.00-0.03); Imm Gran Pct Auto 0.2 % (0.0-0.4); Lymphocytes Absolute Auto 1.8 X10*3/uL (1.2-4.9); Mean Corpuscular HGB Conc 32.0 g/dl (31.0-35.0); Mean Corpuscular Hemoglobin 31.4 pg (27.0-33.0); Mean Corpuscular Volume 98.3 fL (80.0-98.0); NRBC Abs Auto 0.000 X10*3/uL (0.0-0.012); NRBC Pct Auto 0.0 /100WBC (0.0-0.2); Platelet Count 245 X10*3/uL (160-400); Red Blood Count 4.01 X10*6/uL (4.20-5.50); White Blood Count 6.1 X10*3/uL (4.8-10.8)
[2025-03-01 11:37] LABS: UACC Culture Trigger YES
[2025-03-01 11:44] LABS: Alanine Aminotransferase 23 U/L (0-31); Albumin Level 4.0 g/dL (3.5-5.0); Alkaline Phosphatase 70 U/L (39-117); Anion Gap 10 (12-20); Aspartate Amino Transferase 30 U/L (5-31); Blood Urea Nitrogen 19 mg/dL (9-16); Calcium 8.5 mg/dL (8.4-10.2); Carbon Dioxide 25 mmol/L (22-29); Chloride 111 mmol/L (96-108); Cholesterol 176 mg/dL (<200); Estimated Glomerular Filt Rate > 60; HDL Cholesterol 69 mg/dL (>40); Potassium 3.9 mmol/L (3.3-5.1); Sodium 142 mmol/L (135-145); Total Protein 6.7 g/dL (6.5-8.0); Triglycerides 63 mg/dL (<150)
--- OUTSIDE RECORDS SUMMARY | 2025-03-01 12:03 | XMS_ITS | Patient Health Record ---
Author Organization Edy Cabrales MD Address [address] [place], [place] [phone] Care Team Providers Care Medical Transport Specialist Name Role Phone Edy Cabrales Primary Care Provider Allergies No Known Allergies Results Component Value Reference Range Notes Complete Blood Count Auto Di ff (Not yet reviewed by provider) Interpretation: Performing Lab:[facility], [address] [place] [phone] Notes/Report: White Blood Count 6.1 4.8-10.8 X10*3/uL [...] NRBC Abs Auto 0.000 0.0-0.012 X10*3/uL Comprehensive [place]. Panel Fa st (Not yet reviewed by provider) Interpretation: Performing Lab:[facility], [address] [place] [address] Notes/Report: Sodium 142 135-145 mmol/L Potassium 3.9 [...] yet reviewe d by provider) Interpretation: Performing Lab:[facility], [address] [place] [phone] Notes/Report: Triglycerides 63 <150 mg/dL Desirable Triglyceride: [...] (Not yet reviewed by provider) Interpretation: Performing Lab:[facility], [address] [place] [phone] Notes/Report: Urine, Clean Catch Color Urine Yellow Appearance Urine Clear PH 5.5 5.0-9.0 Glucose Urine UA Negative Negative mg/dL Urine Blood Trace Negative Specific [place] - Urine 1.020 1.005-1.025 Urine Protein Negative Neg-Trace mg/dL Urine Ketones Negative Negative mg/dL Nitrite Urine Negative Negative Leukocyte Esterase Urine Small (1+) Negative RBC Urine 0-2 0-2 /HPF WBC Urine 0-5 0-5 /HPF Squamous Epithelial Cell Urine 0-2 0-2 /HPF Bacteria Urine None Seen None Seen Hyaline Casts Urine 0-2 0-2 /LPF Occult Blood, Stool, Guaiac Reviewed date:03/06/2024 12:50:31 PM Interpretation:Negative Performing Lab: Notes/Report: Negative Occult Blood, Stool, Guaiac Neg Reason For Referral No Information Medications Medication SIG (Take, Route, Frequency, Duration) Notes Start Date End Date Status ProAir HFA 108 (90 Base) MCG/ACT 2 puffs as needed Inhalation every 6 hrs for 30 days 10/06/2018 Active Immunizations Vaccine Route Administration Date Status Comme nts DECLINED, FLU Unknown 08/09/2013 Administered DECLINED, PNEUMO Unknown 08/09/2013 Administered PPSV23 (Pnemovax) IM Intramuscular 09/17/2016 Administered PPSV23 (Pnemovax) Unknown 09/09/2014 Refused Fluarix Quadrivalent Unknown 02/14/2015 Refused Fluarix Quadrivalent Unknown 10/03/2018 Refused Prevnar 13 Unknown 10/03/2018 Refused Fluarix Quadrivalent Unknown 02/18/2020 Refused TDaP Unknown 02/18/2020 Refused PPSV23 (Pnemovax) Unknown 02/18/2020 Refused Prevnar 13 Unknown 02/18/2020 Refused Influenza High Dose Unknown 02/17/2021 Refused Covid Vaccine Unknown 02/20/2021 Refused Fluarix Quadrivalent Unknown 03/01/2023 Refused Fluarix Quadrivalent - 150 Unknown 02/28/2024 Refused Social History Tobacco Use: Social History Observation [...] Never (0 point) Points 1 Interpretation Negative Problems Problem Type SNOMED Code ICD Code Onset Dates Problem Status W/U Status Risk Notes Problem 760320473 Mild intermitten t asthma without complication (J45.20) Active confirmed Problem 060133829 History of hemat uria (Z87.448) Active confirmed Problem 063749966 Pure hypercholesterolemia (E78.00) Active confirmed Problem 497665949 Osteopenia deter mined by x-ray (M85.80) Active confirmed Problem 622063890 Age-related inci pient cataract, unspecified laterality (H25.099) Active confirmed Vital Signs Blood pressure diastolic 70 mm Hg 03/06/2024 christine ght is down 16 pounds since 03-01-23 Height 61 in 03/06/2024 weight is down 16 pounds since 03-01-23 Blood pressure systolic 124 mm Hg 03/06/2024 weig ht is down 16 pounds since 03-01-23 Weight 151 lbs 03/06/2024 weight is down 16 pounds since 03-01-23 BMI 28.53 kg/m2 03/06/2024 weight is down 16 pounds since 03-01-23 Encounters Encounter Location Date Provider Diagnosis Edy Cabrales MD [address] [place] [address] [place] [phone] 03/01/2025 Edy Cabrales Pure hypercholestero lemia E78.00 Edy Cabrales MD [address] [place], [place] [phone] 03/06/2024 Edy Cabrales Osteopenia determine d by x-ray M85.80 ; Mild intermittent asthma without complication J45.20 ; Pure hypercholesterolemia E78.00 ; Colon cancer screening Z12.11 and Depression screening Z13.31 Assessments Encounter Date Diagnosis (ICD Code) Assessment Notes Treatment Notes Treatment Clinical Notes Section Notes 03/01/2025 Pure hypercholesterolemia (ICD-10 - E78.00) 03/06/2024 Osteopenia determine d by x-ray (ICD-10 [...] - Z13.31) negative screen Plan Of Treatment Pending Test Test Name Order Date Electrocardiogram (EKG) 09/15/2015 Electrocardiogram (EKG) 09/17/2016 XR CHEST 2 VIEW PA & LAT 03/21/2023 Complete Blood Count Auto Diff 5 Comprehensive [place]. Panel Fast 5 Lipid Panel 03/01/2025 UA ClnCatch+Micro w/rflx Cult 03/01/2025 Future Test Test Name Order Date BONE DENSITY DEXA 10/23/2020 Next Appt Details Provider Name:Edy Ramirez ier, 03/08/2025 11:00:00 AM, [address], [address], [place], [place], [phone], Insurance Providers Payer Name Payer Address Payer Phone Subscriber Number Group Number Insured Name Patient Relationship to Insured Coverage Start Date Coverage End Date MEDICARE NHIC EMILY [address] [place] [address] [id number] Lynne Gordon Self - patient is the insured MED[employer] BCBS OF [place] [address] [place] [address] [id number] Lynne Gordon Self - patient is the insured Medical (General) History Medical History History ICD Code colonoscopy 08/2009 hyperplastic polyp, d ue in 2019 colonoscopy 2020 negative hematuria work up with cysto
--- OUTSIDE RECORDS SUMMARY | 2025-03-01 12:03 | XMS_ITS | Patient Health Record ---
Author Organization [facility] Address [address] [place] [address] Care Team Providers Care Gear Grinder Name Role Phone Edy Cabrales MD Primary Care Provider Dre Parker [phone] Allergies Allergen (clinical drug ingredient) Drug/Non Drug Allergy documented on EMR Reaction Allergy Type Onset Date Status seasonal allergies Unknown Drug Allergy Active Reason For Referral No Information Medications Medication SIG (Take, Route, Frequency, Duration) Notes Start Date End Date Status Night Splint AFO - L1930 as directed 08/07/2018 Active Social History Tobacco Use: Social History Observation Description Date Details (start date - stop date) Former Smoker NA - NA Tobacco Use/Smoking Question Answer Notes Are you a: former smoker When did you stop smoking? 10-12 yrs Additional Findings: Tobacco Non-User Current no n-smoker Alcohol Screen Question Answer Notes Did you have a drink containing alcohol in the p ast year? Yes Points 0 Interpretation Negative Tobacco use other than smoking: Question Answer Notes Are you an other tobacco user? No Problems Problem Type SNOMED Code ICD Code Onset Dates Problem Status W/U Status Risk Notes Problem Acquired hammer toe of right foot (4932830896943 105) Other hammer toe(s) (acquired), right foot (M20.41) Active confirmed Plan Of Treatment Pending Test Test Name Order Date X ray : Foot, left 3V 08/07/2018 X ray : Foot, right 3V 08/07/2018 [id number] OF HEMATOMA/FLUID 019 [id number] OF HEMATOMA/FLUID 018 97498- Nail Unit Biopsy 11/29/2017 Insurance Providers Payer Name Payer Address Payer Phone Subscriber Number Group Number Insured Name Patient Relationship to Insured Coverage Start Date Coverage End Date Medicare National Govt Svcs Inc [address] [place] [address] [id number] Lynne Ventura Self - patient is the insured 2 [employer] Blue Shield [address] [place] [address] [id number] Lynne Ventura Self - patient is the insured Medical (General) History Medical History History ICD Code Arthritis Back,Hip,and Knee pain Surgical History Surgery Date(Month/Year) tonsillectomy 1954
--- OUTSIDE RECORDS SUMMARY | 2025-03-01 12:04 | XMS_ITS | Patient Health Record ---
Author Organization [facility] Address [address] [place] [address] Care Team Providers Care Battery Container Tester Aluminum Name Role Phone Edy Cabrales MD Primary Care Provider Elliot Servin Jr Reason For Referral No Information Medications Medication SIG (Take, Route, Frequency, Duration) Notes Start Date End Date Status MiraLax (colon prep) 8.3 ounce ((238) grams mixed with Gatorade or Crystal Light orally begin at 5:00 p.m. the day before the procedure; Duration: 1 day 10/08/2020 Active Aleve PRN Active Vitamin D Active Garlic Active Albuterol Sulfate HFA PRN Active Vitamin C Active Immunizations Vaccine Route Administration Date Status Comme nts Influenza Unknown 10/08/2020 Refused Social History Tobacco Use: Social History Observation Description Date Details (start date - stop date) Never Smoker NA - NA Tobacco Use/Smoking Question Answer Notes Patient is a nonsmoker Alcohol Screen Question Answer Notes Did you have a drink contain ing alcohol in the past year? Yes How often did you have a dri nk containing alcohol in the past year? 2 to 4 times a month (2 points) How many drinks did you have on a typical day when you were drinking in the past year? 1 or 2 drinks (0 point) How often did you have 6 or more drinks on one occasion in the past year? Never (0 point) Points 2 Interpretation Negative Problems Problem Type SNOMED Code ICD Code Onset Dates Problem Status W/U Status Risk Notes Problem Colon cancer screening (670182012) Colon cancer screening (Z12.11) Active confirmed Problem correction current use of non-steroidal anti-inflammat ory drug (2372806218364 03) correction current use of non-steroidal anti-inflammat ories (NSAID) (Z79.1) Active confirmed Plan Of Treatment Future Test Test Name Order Date COLONOSCOPY 10/08/2020 Insurance Providers Payer Name Payer Address Payer Phone Subscriber Number Group Number Insured Name Patient Relationship to Insured Coverage Start Date Coverage End Date MEDICARE OF [place] [address] [place] [address] [id number] SAFIA GORDON Self - patient is the insured MEDEX ATTN CLAIMS [address] [place] [address] [phone] [id number] SAFIA GORDON Self - patient is the insured Medical (General) History Medical History History ICD Code seasonal allergies asthma Surgical History Surgery Date(Month/Year) tonsillectomy and adenoidectomy
== END 2025-03-01 10:39 | disposition home or self-care (01) ==
LOC: HO.LNP 10:38
PROVIDERS: Visit Provider Internal Medicine
DX: E78.00 Pure hypercholesterolemia, unspecified (principal)
CPT/HCPCS: 80053; 80061; 81001; 85025; 87086

== ENCOUNTER 2025-03-26 10:28 | Outpatient (REF) | payer MEDICARE, SELFPAY ==
--- OUTSIDE RECORDS SUMMARY | 2024-02-28 02:00 | XMS_ITS ---
Author Organization Edy Cabrales MD Address [address] [place], [place] [id number] Care Team Providers Care Clinical Writer Name Role Phone Edy Cabrales Primary Care Provider [phone] Results Component Value Reference Range Notes Complete Blood Count Auto Di ff Reviewed date:02/28/2024 12:39:17 PM Interpretation: Performing Lab:[facility], [address] [place] [phone] Notes/Report: White Blood Count 5.7 4.8-10.8 X10*3/uL Red Blood Count 4.02 4.20-5.50 X10*6/uL Hemoglobin 12.9 12.0-16.0 g/dl Hematocrit 39.7 37.0-47.0 % Mean Corpuscular Volume 98.8 80.0-98.0 fL Mean Corpuscular Hemoglobin 32.1 27.0-33.0 pg Mean Corpuscular HGB Conc 32.5 31.0-35.0 g/dl Red Cell Distribution Width 12.8 11.0-16.0 % Platelet Count 230 160-400 X10*3/uL Mean Platelet Volume 8.5 9.4-12.3 fL Neutrophils Percent Auto 48.8 45-73 % Imm Gran Pct Auto 0.2 0.0-0.4 % Lymphocytes Percent Auto 34.7 20-40 % Monocytes Percent Auto 12.6 2-11 % Eosinophils Percent Auto 3.0 0-4 % Basophils Percent Auto 0.7 0-2 % NRBC Pct Auto 0.0 0.0-0.2 /100WBC Neutrophils Absolute Auto 2.8 2.0-8.3 x10*3/u L Imm Gran Abs Auto 0.01 0.00-0.03 X10*3/uL Lymphocytes Absolute Auto 2.0 1.2-4.9 X10*3/u L Monocytes Absolute Auto 0.7 0.1-1.2 X10*3/uL Eosinophils Absolute Auto 0.2 0.0-0.4 X10*3/u L Basophils Absolute Auto 0.0 0.0-0.2 X10*3/uL NRBC Abs Auto 0.000 0.0-0.012 X10*3/uL Comprehensive [place]. Panel Fa st Reviewed date:02/28/2024 12:27:22 PM Interpretation: Performing Lab:[address] [phone] Notes/Report: Sodium 142 135-145 mmol/L Potassium 4.0 3.3-5.1 mmol/L Chloride 108 96-108 mmol/L Carbon Dioxide 25 22-29 mmol/L Anion Gap 13 12-20 Blood Urea Nitrogen 21 9-16 mg/dL Creatinine 0.79 0.5-1.4 mg/dL Estimated Glomerular Filt Rate > 60 NOTE: For -Ivorian individuals, multiply the result by 1.210. Chronic Kidney Disease: Estimated GFR < 60 mL/min/1.73m2 Severe Kidney Disease: Estimated GFR < 15 mL/min/1.73m2 Glucose Fasting 90 60-99 mg/dL Calcium 9.1 8.4-10.2 mg/dL Bilirubin Total 0.3 0.0-1.0 mg/dL Aspartate Amino Transferase 34 5-31 U/L Alanine Aminotransferase 24 0-31 U/L Total Protein 6.7 6.5-8.0 g/dL Albumin Level 3.9 3.5-5.0 g/dL Alkaline Phosphatase 60 39-117 U/L Lipid Panel Reviewed date:02/28/2024 12:13:42 PM Interpretation: Performing Lab:[facility], [address] [place] [phone] Notes/Report: Triglycerides 53 <150 mg/dL Desirable Triglyceride: less than 150 mg/dL Borderline High Triglyceride 150-199 mg/dL High Triglyceride: 200-499 mg/dL Very High Triglyceride: greater than or equal to 5OO mg/dL Cholesterol 178 <200 mg/dL Desirable Cholesterol: less than 200 mg/dL Borderline High Cholesterol: 200-239 mg/dL High Cholesterol: greater than 239 mg/dL LDL Cholesterol Calculated 94 <100 mg/dL Desirable LDL: less than 100 mg/dL Near Optimal/Above Optimal LDL: 110-129 mg/dL Borderline High LDL: 130-159 mg/dL High LDL: 160-189 mg/dL Very High LDL: greater than or equal to 190 mg/dL HDL Cholesterol 74 >40 mg/dL Desirable HDL: greater than 40 mg/dL Note: This HDL assay may give artificially low results in patients with liver disease. UA ClnCatch+Micro w/rflx Cul t Reviewed date:02/28/2024 12:38:58 PM Interpretation: Performing Lab:[facility], [address] [place] [phone] Notes/Report: [id number] Urine, Clean Catch Color Urine Yellow Appearance Urine Clear PH 5.5 5.0-9.0 Glucose Urine UA Negative Negative mg/dL Urine Blood Negative Negative Specific [place] - Urine 1.025 1.005-1.025 Urine Protein Negative Neg-Trace mg/dL Urine Ketones Negative Negative mg/dL Nitrite Urine Negative Negative Leukocyte Esterase Urine Moderate (2+) Negative RBC Urine 0-2 0-2 /HPF WBC Urine 21-50 0-5 /HPF Squamous Epithelial Cell Urine 6-10 0-2 /HPF Bacteria Urine Trace None Seen Hyaline Casts Urine 0-2 0-2 /LPF REASON FOR VISIT fastinf labs Immunizations Vaccine Route Administration Date Status Comme nts Fluarix Quadrivalent - 150 Unknown 02/28/2024 Refused Encounters Encounter Location Date Provider Diagnosis Edy Cabrales MD [address] [place] [phone] 02/28/2024 Edy Cabrales Pure hypercholestero lemia E78.00 and History of hematuria Z87.448 Assessments Encounter Date Diagnosis (ICD Code) Assessment Notes Treatment Notes Treatment Clinical Notes Section Notes 02/28/2024 Pure hypercholesterolemia (ICD-10 - E78.00) 02/28/2024 History of hematuria (ICD-10 - Z87.448) Plan Of Treatment Next Appt Details Provider Name:Edy moreland, 03/06/2026 07:45:00 AM, [address], [address], [place], [place], [phone], Provider Name:Edy Ramirez ier, 03/13/2026 09:30:00 AM, [address] [facility], [address], [place], [place], [phone], Progress Notes * Honorio VENTURAOB:1945 (80 yo F)Acc No.[id number]:02/28/2024 Progress Note Patient: Lynne BALES Provider: Lyubov Cabrales MD :1945 A ge:78 Y S ex:Female Date:02/28/2024 Address:[address] [place] [address] , [facility] Subjective: * Chief Complaints: * 1 . Fastinf labs. * Medical History: Objective: * Vitals: Assessment: * Assessment: 1. P ure hypercholesterolemia - E78.00 (Primary) 2 . H istory of hematuria - Z87.448 Plan: * Treatment: 2. H istory of hematuria L AB: Complete Blood Count Auto Diff (Collection Date & Time - 02/28/2024 07:00 AM) L AB: Comprehensive [place]. Panel Fast (Collection Date & Time - 02/28/2024 07:00 AM) L AB: Lipid Panel (Collection Date & Time - 02/28/2024 07:00 AM) L AB: UA ClnCatch+Micro w/rflx Cult (Collection Date & Time - 02/28/2024 07:00 AM) * Immunizations: Fluarix Quadrivalent - 150 (Not administered - Refused: Patient decision) * Procedure Codes: 3 6415 VENIPUNCT, ROUTINE* * * The named appointment provid er may or may not be the originator of this progress note, and it is not deemed complete until electronically signed by the appointment provider. Sign off status: Pending * Provider: Lyubov Cabrales MD Date: Generated for Kaylene kennedy/Luis/eTmathewsmitting on: 05/26/2024 01:05 PM EST
--- OUTSIDE RECORDS SUMMARY | 2024-03-06 05:30 | XMS_ITS ---
Author Organization Edy Cabrales MD Address [address] [place], [place] [phone] Care Team Providers Care Apple Sorter Name Role Phone Edy Cabrales Primary Care Provider Allergies No Known Allergies Results Component Value Reference Range Notes Occult Blood, Stool, Guaiac Reviewed date:03/06/2024 12:50:31 PM Interpretation:Negative Performing Lab: Notes/Report: Negative Occult Blood, Stool, Guaiac Neg REASON FOR VISIT review labs Medications Medication SIG (Take, Route, Frequency, Duration) Notes Start Date End Date Status ProAir HFA 108 (90 Base) MCG/ACT 2 puffs as needed Inhalation every 6 hrs for 30 days 10/06/2018 Active Social History Tobacco Use: Social History Observation Description Date Details (start date - stop date) Former Smoker NA - NA Tobacco Use/Smoking Question Answer Notes Patient is a former smoker How long has it been since y ou last smoked? > 10 years Additional Findings: Tobacco Non-User Fo rmer smoker, currently using no form of tobacco Alcohol Screen Question Answer Notes Did you have a drink contain ing alcohol in the past year? Yes How often did you have a dri nk containing alcohol in the past year? Monthly or less (1 point) How many drinks did you have on a typical day when you were drinking in the past year? 1 or 2 drinks (0 point) How often did you have 6 or more drinks on one occasion in the past year? Never (0 point) Points 1 Interpretation Negative Vital Signs Blood pressure systolic 124 mm Hg 03/06/20 24 Blood pressure diastolic 70 mm Hg 024 Height 61 in 03/06/2024 Weight 151 lbs 03/06/2024 BMI 28.53 kg/m2 03/06/2024 weight is down 16 pounds sin 03-01-23 Encounters Encounter Location Date Provider Diagnosis Edy Cabrales MD [address] [place] [address] [place] [phone] 03/06/2024 Edy Cabrales Osteopenia determine d by x-ray M85.80 ; Mild intermittent asthma without complication J45.20 ; Pure hypercholesterolemia E78.00 ; Colon cancer screening Z12.11 and Depression screening Z13.31 Assessments Encounter Date Diagnosis (ICD Code) Assessment Notes Treatment Notes Treatment Clinical Notes Section Notes 03/06/2024 Osteopenia determine d by x-ray (ICD-10 - M85.80) do bone density next year 03/06/2024 Mild intermittent as thma without complication (ICD-10 - J45.20) doing well and not needing inhaler in long time 03/06/2024 Pure hypercholesterolemia (ICD-10 - E78.00) stable, will continue to monitor 03/06/2024 Colon cancer screeni ng (ICD-10 - Z12.11) guaiac negative 03/06/2024 Depression screening (ICD-10 - Z13.31) negative screen Plan Of Treatment Medication Medication Name Sig Start Date Stop Date Notes ProAir HFA 108 (90 Base) MCG/ACT 2 puffs as needed Inhalation every 6 hrs for 30 days 10/06/2018 Treatment Notes Assessment Notes Osteopenia determined by x-ray do bone d ensity next year Mild intermittent asthma without complic ation doing well and not needing inhaler in long time Pure hypercholesterolemia stable, will c ontinue to monitor Colon cancer screening guaiac negative Depression screening negative screen Next Appt Details Provider Name:Edy moreland, 03/06/2026 07:45:00 AM, [address] [place] [address], Suite [facility], [place], [place], [phone], Provider Name:Edy moreland, 03/13/2026 09:30:00 AM, [address] [place] [address], Suite [facility], [place], [place], [phone], Progress Notes * Grecia VENTURA:1945 (79 yo F)Acc No.[id number]:03/06/2024 Patient: Lynne Looney Provider: Lyubov Cabrales MD :1945 A ge:78 Y S ex:Female Date:03/06/2024 Address:[address] [place] [address] Subjective: * Chief Complaints: * R eview labs * HPI: D epression Screening: PHQ-9 L ittle interest or pleasure in doing things N ot at all, F eeling down, depressed, or hopeless N ot at all, T rouble falling or staying asleep, or sleeping too much N ot at all, F eeling tired or having little energy N ot at all, P oor appetite or overeating N ot at all, F eeling bad about yourself or that you are a failure, or have let yourself or your family down N ot at all, T rouble concentrating on things, such as reading the newspaper or watching television N ot at all, M oving or speaking so slowly that other people could have noticed; or the opposite, being so fidgety or restless that you have been moving around a lot more than usual N ot at all, T houghts that you would be better off or of hurting yourself in some way N ot at all, T otal Score 0 . I nterpretation and Intervention D epression Screening Findings N egative, F ollow-Up for Depression : review of PHQ-9 found negative result, no follow-up needed. C ommunication Needs: Communication Needs D oes the patient have a hearing impairment N o, D oes the patient have a vision impairment? Y es, I f yes, what is the vision impairment? G lasses, D oes the patient have a cognition impairment? N o. S MERRICK Questions: SDOH Questions I n the past year have you been worried about losing housing? N o, I n the past year have you or any family members you live with been unable to get any of the following when it was really needed? Check all that apply: N one. F all Risk: History H ave you had any falls with injury in the past year? N o, H ave you had two or more falls in the past year? N o. S ymptom(s): patient is a 78 yo female here for review of recent labs and follow up of chronic issues. * ROS: G eneral/Constitutional: Patient denies f atigue , headache. C hange in appetite?denies. C hills d enies. F ever d enies. O phthalmologic: Blurred vision d enies. D ischarge d enies. P ain d enies. E NT: Patient denies d ecreased sense of smell , any loss of taste , sore throat. D ecreased hearing d enies. S ore throat d enies. S wollen glands d enies. E ndocrine: Cold intolerance d enies. E xcessive thirst d enies. H eat intolerance d enies. W eight loss d enies. R espiratory: Cough d enies. S hortness of breath at rest d enies. S hortness of breath with exertion d enies. W heezing d enies. C ardiovascular: Chest pain at rest d enies. C hest pain with exertion?denies. I rregular heartbeat d enies. S hortness of breath d enies. ? G astrointestinal: Abdominal pain d enies. C hange in bowel habits d enies. D iarrhea d enies. N ausea d enies. R ectal bleeding d enies. V omiting d enies . G enitourinary: Blood in urine d enies. D ifficulty urinating d enies. F requent urination d enies. U rinary incontinence D enies. M usculoskeletal: Patient denies m uscle aches. P ainful joints d enies. W eakness d enies. P eripheral Vascular: Patient denies r ed and blue toes. S kin: Dry skin d enies. I tching d enies. D enies?Mole(s), changes in moles, new moles or any lesions of concern. D enies P hotosensitivity. R kellie d enies. N eurologic: Dizziness d enies. F ainting d enies. H eadache?denies. * Medical History: * Surgical History: * Hospitalization/Major Diagno stic Procedure: * Family History: F ather: 42 yrs. M other: 82 yrs, diagnosed with Cancer. Father- Cardiac Mother-Uterine Cancer, Denies mental health/substance abuse family history, Denies mental health/substance abuse family history, No pertinent family medical history, Denies mental health/substance abuse family history, No pertinent family medical history. * Social History: T obacco Use: T obacco Use/Smoking P atient is a f ormer smoker, H ow long has it been since you last smoked? > 10 years, A dditional Findings: Tobacco Non-User F ormer smoker, currently using no form of tobacco. D rugs/Alcohol: A lcohol Screen D id you have a drink containing alcohol in the past year? Y es, H ow often did you have a drink containing alcohol in the past year? M onthly or less (1 point), H ow many drinks did you have on a typical day when you were drinking in the past year? 1 or 2 drinks (0 point), H ow often did you have 6 or more drinks on one occasion in the past year? N ever (0 point), P oints 1 , I nterpretation N egative. M iscellaneous: C affeine: yes, frequency:, 1-2 cups per day. no Children. Community involvements: yes. Exercise: yes. Home smoke detector use: yes. Housing: owning. Living with: spouse. Marital status: . Occupation: weeks/months/years, Retired. Pets: none. no Travel outside of the [place]. * Medications: T akingProAir HFA 108 (90 Base) MCG/ACT Aerosol Solution 2 puffs as needed Inhalation every 6 hrsMedication List reviewed and reconciled with the patientTaking ProAir HFA 108 (90 Base) MCG/ACT Aerosol Solution 2 puffs as needed Inhalation every 6 hrsMedication List reviewed and reconciled with the patient * Allergies: N .K.D.A.yes[Allergies Verified] Objective: * Vitals: H t: 61, Wt:151, BMI:28.53, BP:124/70 weight is down 16 pounds since 03-01-23. * P ast Orders: L ab:Lipid Panel (Order Date - 02/28/2024) (Collection Date - 02/28/2024) Value Reference Range Triglycerides 53 <150 - mg/dL Cholesterol 178 <200 - mg/dL LDL Cholesterol Calculated 94 <100 - mg/dL HDL Cholesterol 74 >40 - mg/dL L ab:UA ClnCatch+Micro w/rflx Cult (Order Date - 02/28/2024) (Collection Date - 02/28/2024) Value Reference Range Color Urine Yellow - Appearance Urine Clear - PH 5.5 5.0-9.0 - Glucose Urine UA Negative Negative - mg/dL Urine Blood Negative Negative - Specific [place] - Urine 1.025 1.005-1.025 - Urine Protein Negative Neg-Trace - mg/dL Urine Ketones Negative Negative - mg/dL Nitrite Urine Negative Negative - Leukocyte Esterase Urine Moderate (2+) A Negative - RBC Urine 0-2 0-2 - /HPF WBC Urine 21-50 A 0-5 - /HPF Squamous Epithelial Cell Urine 6-10 0-2 - /HPF Bacteria Urine Trace None Seen - Hyaline Casts Urine 0-2 0-2 - /LPF L ab:Urine Culture (Order Date - 02/28/2024) (Collection Date - 02/28/2024) Value Reference Range Urine Culture urogenital contamination. - L ab:Complete Blood Count Auto Diff (Order Date - 02/28/2024) (Collection Date - 02/28/2024) Value Reference Range White Blood Count 5.7 4.8-10.8 - X10*3/uL Red Blood Count 4.02 L 4.20-5.50 - X10*6/uL Hemoglobin 12.9 12.0-16.0 - g/dl Hematocrit 39.7 37.0-47.0 - % Mean Corpuscular Volume 98.8 H 80.0-98.0 - fL Mean Corpuscular Hemoglobin 32.1 27.0-33.0 - pg Mean Corpuscular HGB Conc 32.5 31.0-35.0 - g/ dl Red Cell Distribution Width 12.8 11.0-16.0 - % Platelet Count 230 160-400 - X10*3/uL Mean Platelet Volume 8.5 L 9.4-12.3 - fL Neutrophils Percent Auto 48.8 45-73 - % Imm Gran Pct Auto 0.2 0.0-0.4 - % Lymphocytes Percent Auto 34.7 20-40 - % Monocytes Percent Auto 12.6 H 2-11 - % Eosinophils Percent Auto 3.0 0-4 - % Basophils Percent Auto 0.7 0-2 - % NRBC Pct Auto 0.0 0.0-0.2 - /100WBC Neutrophils Absolute Auto 2.8 2.0-8.3 - x10* 3/uL Imm Gran Abs Auto 0.01 0.00-0.03 - X10*3/uL Lymphocytes Absolute Auto 2.0 1.2-4.9 - X10* 3/uL Monocytes Absolute Auto 0.7 0.1-1.2 - X10*3/ uL Eosinophils Absolute Auto 0.2 0.0-0.4 - X10* 3/uL Basophils Absolute Auto 0.0 0.0-0.2 - X10*3/ uL NRBC Abs Auto 0.000 0.0-0.012 - X10*3/uL L ab:Comprehensive [place]. Panel Fast (Order Date - 02/28/2024) (Collection Date - 02/28/2024) Value Reference Range Sodium 142 135-145 - mmol/L Bilirubin Total 0.3 0.0-1.0 - mg/dL Aspartate Amino Transferase 34 H 5-31 - U/L Alanine Aminotransferase 24 0-31 - U/L Total Protein 6.7 6.5-8.0 - g/dL Albumin Level 3.9 3.5-5.0 - g/dL Alkaline Phosphatase 60 39-117 - U/L Potassium 4.0 3.3-5.1 - mmol/L Chloride 108 96-108 - mmol/L Carbon Dioxide 25 22-29 - mmol/L Anion Gap 13 12-20 - Blood Urea Nitrogen 21 H 9-16 - mg/dL Creatinine 0.79 0.5-1.4 - mg/dL Estimated Glomerular Filt Rate > 60 - Glucose Fasting 90 60-99 - mg/dL Calcium 9.1 8.4-10.2 - mg/dL * Examination: G eneral Examination: GENERAL APPEARANCE: w ell developed, well nourished, in no acute distress. HEAD: n ormocephalic, atraumatic. EYES: p upils equal, round, reactive to light and accommodation, sclera non-icteric. EARS: n ormal. ORAL CAVITY: m ucosa moist. THROAT: c lear. NECK/THYROID: n evelyne supple, full range of motion, no cervical lymphadenopathy, no bruits. SKIN: w arm and dry, no suspicious lesions. HEART: r egular rate and rhythm, S1, S2 normal, no murmurs.? LUNGS: c lear to auscultation bilaterally. BREASTS: N o mass, no lump. ABDOMEN: s oft, nontender, nondistended, bowel sounds present, normal, no organomegaly , no masses palpable. RECTAL EXAM: s tool guaiac negative , no masses palpable.? FEMALE GENITOURINARY: c haperone in room , non-palpable ovaries. EXTREMITIES: n o clubbing, cyanosis, or edema. NEUROLOGIC: n onfocal, motor strength normal upper and lower extremities, sensory exam intact. Assessment: * Assessment: 1. O steopenia determined by x-ray - M85.80 (Primary) 2 . M ild intermittent asthma without complication - J45.20 3 . P ure hypercholesterolemia - E78.00 4 . C olon cancer screening - Z12.11 5 . D epression screening - Z13.31 Plan: * Treatment: 2. M ild intermittent asthma without complication Notes: doing well and not needing inhaler in long time 3. P ure hypercholesterolemia Notes: stable, will continue to monitor 4. C olon cancer screening L AB: Occult Blood, Stool, Guaiac N egative Value Reference Range O ccult Blood, Stool, Guaiac Neg Notes: guaiac negative??5.?Depression screening? Notes: negative screen?? * Procedure Codes: 8 2270 TEST FOR BLOOD, FECES * * Sign off status: Completed true * Provider: Lyubov Cabrales MD Date: 05/06/2023 Generated for Kaylene kennedy/Luis/Kylesmitting on: 05/26/2024 01:05 PM EST History and Physical Notes * HPI (History of Present Illness) Category Sub-Category Detail Notes Category Not es Symptom(s) patient is a 78 yo female here for review of recent labs and follow up of chronic issues. Depression Screening PHQ-9 Little inte rest or pleasure in doing things: Not at all Feeling down, depressed, or hopeless: No t at all Trouble falling or staying asleep, or sl eeping too much: Not at all Feeling tired or having little energy: N ot at all Poor appetite or overeating: Not at all Feeling bad about yourself o r that you are a failure, or have let yourself or your family down: Not at all Trouble concentrating on thi ngs, such as reading the newspaper or watching television: Not at all Moving or speaking so slowly that other people could have noticed; or the opposite, being so fidgety or restless that you have been moving around a lot more than usual: Not at all Thoughts that you would be b paula off or of hurting yourself in some way: Not at all Total Score: 0 Interpretation and Intervention Depression Thiago jeffrey Findings: Negative Follow-Up for Depression: : review of PH Q-9 found negative result, no follow-up needed SDOH Questions SDOH Questions In the past year have you been worried about losing housing?: No In the past year have you or any family members you live with been unable to get any of the following when it was really needed? Check all that apply:: None Fall Risk History Have you had any falls with injury i n the past year?: No Have you had two or more falls in the st year?: No Communication Needs Communication Needs Does the patient have a hearing impairment: No Does the patient have a vision impairmen t?: Yes If yes, what is the vision impairment?: Glasses Does the patient have a cognition impair ment?: No Examination Category Sub-Category Detail Notes Category Not es General Examination GENERAL APPEARANCE: well dev eloped, well nourished, in no acute distress HEAD: normocephalic, atrau matic EYES: pupils equal, round, reactive to light and accommodation, sclera non-icteric EARS: normal THROAT: clear NECK/THYROID: neck supple, full ra nge of motion, no cervical lymphadenopathy, no bruits HEART: regular rate and rhy thm, S1, S2 normal, no murmurs LUNGS: clear to auscultatio n bilaterally ABDOMEN: soft, nontender, non distended, bowel sounds present, normal, no organomegaly , no masses palpable NEUROLOGIC: nonfocal, motor stre ngth normal upper and lower extremities, sensory exam intact SKIN: warm and dry, no damaso picious lesions EXTREMITIES: no clubbing, cyanosi s, or edema BREASTS: No mass, no lump RECTAL EXAM: stool guaiac negativ e , no masses palpable FEMALE GENITOURINARY: 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
--- OUTSIDE RECORDS SUMMARY | 2025-03-01 02:30 | XMS_ITS ---
Author Organization Edy Cabrales MD Address [address] [place], [place] [phone] Care Team Providers Care Machine Sorter Name Role Phone Edy Cabrales Primary Care Provider Results Component Value Reference Range Notes Complete Blood Count Auto Di ff Reviewed date:03/01/2025 12:43:52 PM Interpretation: Performing Lab:[facility], [address] [place] [phone] Notes/Report: White Blood Count 6.1 4.8-10.8 X10*3/uL Red Blood Count 4.01 4.20-5.50 X10*6/uL Hemoglobin 12.6 12.0-16.0 g/dl Hematocrit 39.4 37.0-47.0 % Mean Corpuscular Volume 98.3 80.0-98.0 fL Mean Corpuscular Hemoglobin 31.4 27.0-33.0 pg Mean Corpuscular HGB Conc 32.0 31.0-35.0 g/dl Red Cell Distribution Width 12.8 11.0-16.0 % Platelet Count 245 160-400 X10*3/uL Mean Platelet Volume 8.5 9.4-12.3 fL Neutrophils Percent Auto 54.7 45-73 % Imm Gran Pct Auto 0.2 0.0-0.4 % Lymphocytes Percent Auto 28.7 20-40 % Monocytes Percent Auto 12.0 2-11 % Eosinophils Percent Auto 3.6 0-4 % Basophils Percent Auto 0.8 0-2 % NRBC Pct Auto 0.0 0.0-0.2 /100WBC Neutrophils Absolute Auto 3.3 2.0-8.3 x10*3/u L Imm Gran Abs Auto 0.01 0.00-0.03 X10*3/uL Lymphocytes Absolute Auto 1.8 1.2-4.9 X10*3/u L Monocytes Absolute Auto 0.7 0.1-1.2 X10*3/uL Eosinophils Absolute Auto 0.2 0.0-0.4 X10*3/u L Basophils Absolute Auto 0.1 0.0-0.2 X10*3/uL NRBC Abs Auto 0.000 0.0-0.012 X10*3/uL Comprehensive [place]. Panel Fa st Reviewed date:03/01/2025 12:19:52 PM Interpretation: Performing Lab:[facility], [address] [place] [phone] Notes/Report: Sodium 142 135-145 mmol/L Potassium 3.9 3.3-5.1 mmol/L Chloride 111 96-108 mmol/L Carbon Dioxide 25 22-29 mmol/L Anion Gap 10 12-20 Blood Urea Nitrogen 19 9-16 mg/dL Creatinine 0.75 0.5-1.4 mg/dL Estimated Glomerular Filt Rate > 60 Chronic Kidney Disease: Estimated GFR < 60 mL/min/1.73m2 Severe Kidney Disease: Estimated GFR < 15 mL/min/1.73m2 Glucose Fasting 96 60-99 mg/dL Calcium 8.5 8.4-10.2 mg/dL Bilirubin Total 0.2 0.0-1.0 mg/dL Aspartate Amino Transferase 30 5-31 U/L Alanine Aminotransferase 23 0-31 U/L Total Protein 6.7 6.5-8.0 g/dL Albumin Level 4.0 3.5-5.0 g/dL Alkaline Phosphatase 70 39-117 U/L Lipid Panel Reviewed date:03/01/2025 12:07:59 PM Interpretation: Performing Lab:[facility], [address] [place] [phone] Notes/Report: Triglycerides 63 <150 mg/dL Desirable Triglyceride: less than 150 mg/dL Borderline High Triglyceride 150-199 mg/dL High Triglyceride: 200-499 mg/dL Very High Triglyceride: greater than or equal to 5OO mg/dL Cholesterol 176 <200 mg/dL Desirable Cholesterol: less than 200 mg/dL Borderline High Cholesterol: 200-239 mg/dL High Cholesterol: greater than 239 mg/dL LDL Cholesterol Calculated 95 <100 mg/dL Desirable LDL: less than 100 mg/dL Near Optimal/Above Optimal LDL: 110-129 mg/dL Borderline High LDL: 130-159 mg/dL High LDL: 160-189 mg/dL Very High LDL: greater than or equal to 190 mg/dL HDL Cholesterol 69 >40 mg/dL Desirable HDL: greater than 40 mg/dL Note: This HDL assay may give artificially low results in patients with liver disease. UA ClnCatch+Micro w/rflx Cul t Reviewed date:03/01/2025 12:20:46 PM Interpretation: Performing Lab:[facility], [address] [place] [phone] Notes/Report: Urine, Clean Catch Color Urine Yellow Appearance Urine Clear PH 5.5 5.0-9.0 Glucose Urine UA Negative Negative mg/dL Urine Blood Trace Negative Specific [place] - Urine 1.020 1.005-1.025 Urine Protein Negative Neg-Trace mg/dL Urine Ketones Negative Negative mg/dL Nitrite Urine Negative Negative Leukocyte Esterase Urine Small (1+) Negative RBC Urine 0-2 0-2 /HPF WBC Urine 0-5 0-5 /HPF Squamous Epithelial Cell Urine 0-2 0-2 /HPF Bacteria Urine None Seen None Seen Hyaline Casts Urine 0-2 0-2 /LPF REASON FOR VISIT yearly fasting labs Encounters Encounter Location Date Provider Diagnosis Edy Cabrales MD [address] [place] [address] [place] [phone] 03/01/2025 Edy Cabrales Pure hypercholestero lemia E78.00 Assessments Encounter Date Diagnosis (ICD Code) Assessment Notes Treatment Notes Treatment Clinical Notes Section Notes 03/01/2025 Pure hypercholesterolemia (ICD-10 - E78.00) Plan Of Treatment Next Appt Details Provider Name:Edy moreland, 03/06/2026 07:45:00 AM, [address] [place] [address], [address] [place] [address], [phone], Provider Name:Edy moreland, 03/13/2026 09:30:00 AM, [address] [place] [address], [address] [place] [address], [phone], Progress Notes * Grecia VENTURA:1945 (80 yo F)Acc No.[id number]:03/01/2025 Progress Note Patient: Lynne BALES Provider: Lyubov Cabrales MD :1945 A ge:79 Y S ex:Female Date:03/01/2025 Address:[address] [place] [address] Subjective: * Chief Complaints: * 1 . Yearly fasting labs. * Medical History: Objective: * Vitals: Assessment: * Assessment: 1. P ure hypercholesterolemia - E78.00 (Primary) Plan: * Treatment: * Procedure Codes: 3 6415 VENIPUNCT, ROUTINE* * * The named appointment provid er may or may not be the originator of this progress note, and it is not deemed complete until electronically signed by the appointment provider. Sign off status: Pending * Provider: Lyubov Cabrales MD Date: Generated for Kaylene kennedy/Luis/Kylesmitting on: 05/26/2024 01:05 PM EST
--- OUTSIDE RECORDS SUMMARY | 2025-03-08 06:00 | XMS_ITS ---
Author Organization Edy Cabrales MD Address [address] [place], [place] [phone] Care Team Providers Care Manager Qa Name Role Phone Edy Cabrales Primary Care Provider Allergies No Known Allergies Results Component Value Reference Range Notes Occult Blood, Stool, Guaiac Reviewed date:03/08/2025 11:51:55 AM Interpretation:Negative Performing Lab: Notes/Report: Negative Occult Blood, Stool, Guaiac Neg REASON FOR VISIT annual visit Medications Medication SIG (Take, Route, Frequency, Duration) Notes Start Date End Date Status ProAir HFA 108 (90 Base) MCG/ACT 2 puffs as needed Inhalation every 6 hrs for 30 days 10/06/2018 Active Immunizations Vaccine Route Administration Date Status Comme nts Influenza High Dose Unknown 03/08/2025 Refused Social History Tobacco Use: Social History [...] Interpretation Negative Vital Signs Blood pressure systolic 132 mm Hg 03/08/20 25 Blood pressure diastolic 76 mm Hg 025 Height 61 in 03/08/2025 Weight 166 lbs 03/08/2025 BMI 31.36 kg/m2 03/08/2025 weight is up 15 pounds since 03-06-24 Encounters Encounter Location Date Provider Diagnosis Edy Cabrales MD [address] [place] [address] Drive [address] [place], [place] [phone] 03/08/2025 Edy Cabrales Osteopenia determine d by x-ray M85.80 ; Mild intermittent asthma without complication J45.20 ; Colon cancer screening Z12.11 ; Depression screening Z13.31 and Screening mammogram for breast cancer Z12.31 Assessments Encounter Date Diagnosis (ICD Code) Assessment Notes Treatment Notes Treatment Clinical Notes Section Notes 03/08/2025 Osteopenia determined by x-ray (ICD-10 - M85.80) will continue to monitor 03/08/2025 Mild intermittent asthma without complication (ICD-10 - J45.20) stable, will continue current regiment 03/08/2025 Colon cancer screening (ICD-10 - Z12.11) guaiac negative 03/08/2025 Depression screening (ICD-10 - Z13.31) negative screen 03/08/2025 Screening mammogram for breast cancer (ICD-10 - Z12.31) THE ORDER HAS BEEN FAXED TO [facility]ENTRALIZED FOR SCHEDULING, PATIENT IS AWARE 03/08/2025 Other labs reviewed and discussed with patient Plan Of Treatment Medication Medication Name Sig Start Date Stop Date Notes ProAir HFA 108 (90 Base) MCG/ACT 2 puffs as needed Inhalation every 6 hrs for 30 days 10/06/2018 Treatment Notes Assessment Notes Osteopenia determined by x-ray will cont inue to monitor Mild intermittent asthma wit hout complication stable, will continue current regiment Colon cancer screening guaiac negative Depression screening negative screen Screening mammogram for breast cancer TH E ORDER HAS BEEN FAXED TO [facility]ENTRALIZED FOR SCHEDULING, PATIENT IS AWARE Other labs reviewed and di scussed with patient Pending Test Test Name Order Date MAMMOGRAM DIGITAL BILATERAL SCREEN 03/08 Next Appt Details Provider Name:Edy moreland, 03/06/2026 07:45:00 AM, [address], [address], [place], [place], [phone], Provider Name:Edy moreland, 03/13/2026 09:30:00 AM, [address], [address], [place], [place], [phone], Progress Notes * Honorio VENTURAOB:1945 (80 yo F)Acc No.[id number]:03/08/2025 Progress Notes Patient: Lynne BALES Provider: Lyubov Cabrales MD :1945 A ge:79 Y S ex:Female Date:03/08/2025 Address:[address] [place] [address] , [facility] Subjective: * Chief Complaints: * A nnual visit * HPI: D epression Screening: PHQ-9 L [...] patient have a cognition impairment? N o. F all Risk: History H ave you had any falls with injury in the past year? N o, H ave you had two or more falls in the past year? N o. S MERRICK Questions: SDOH Questions I n the past year have you been worried about losing housing? N o, I n the past year have you or any family members you live with been unable to get any of the following when it was really needed? Check all that apply: N one. S ymptom(s): patient is a 79 yo female here for visit with review of recent labs and follow up of chronic issues h ad a little asthma this year with the leaves coming down. only used inhaler 3 times. * ROS: G eneral/Constitutional: Change in appetite d enies. C hills d enies. F ever d enies. O phthalmologic: Blurred vision d enies. D ischarge d enies. P ain d enies. E NT: Decreased hearing d enies. S ore throat d enies.?Swollen glands d enies. E ndocrine: Cold intolerance [...] U rinary incontinence D enies. M usculoskeletal: Painful joints d enies. W eakness d enies. ? S kin: Dry skin d enies. I [...] affeine: yes, frequency:, 1-2 cups per day. Children: no. Community involvements: yes. Exercise: yes, very active. Home smoke detector use: yes. Housing: owning. Living with: spouse. Marital status: . Occupation: weeks/months/years, Retired. Pets: none. * Medications: T akingProAir HFA 108 (90 Base) MCG/ACT Aerosol Solution 2 puffs as needed Inhalation every 6 hrs Medication List reviewed and reconciled with the patientTaking ProAir HFA 108 (90 Base) MCG/ACT Aerosol Solution 2 puffs as needed Inhalation every 6 hrs Medication List reviewed and reconciled with the patient * Allergies: N .K.D.A.yes[Allergies Verified] Objective: * Vitals: H t: 61, Wt: 166, BMI:31.36, BP:132/76, Wt-k.3. weight is up 15 pounds since 03-06-24. * P ast Orders: L ab:Complete Blood Count Auto Diff (Order Date - 03/01/2025) (Collection Date & Time - 03/01/2025 10:40 AM) Value Reference Range White Blood Count 6.1 4.8-10.8 - X10*3/uL Red Blood Count 4.01 L 4.20-5.50 - X10*6/uL Hemoglobin 12.6 12.0-16.0 - g/dl Hematocrit 39.4 37.0-47.0 - % Mean Corpuscular Volume 98.3 H 80.0-98.0 - fL Mean Corpuscular Hemoglobin 31.4 27.0-33.0 - pg Mean Corpuscular HGB Conc 32.0 31.0-35.0 - g/ dl Red Cell Distribution Width 12.8 11.0-16.0 - % Platelet Count 245 160-400 - X10*3/uL Mean Platelet Volume 8.5 L 9.4-12.3 - fL Neutrophils Percent Auto 54.7 45-73 - % Imm Gran Pct Auto 0.2 0.0-0.4 - % Lymphocytes Percent Auto 28.7 20-40 - % Monocytes Percent Auto 12.0 H 2-11 - % Eosinophils Percent Auto 3.6 0-4 - % Basophils Percent Auto 0.8 0-2 - % NRBC Pct Auto 0.0 0.0-0.2 - /100WBC Neutrophils Absolute Auto 3.3 2.0-8.3 - x10* 3/uL Imm Gran Abs Auto 0.01 0.00-0.03 - X10*3/uL Lymphocytes Absolute Auto 1.8 1.2-4.9 - X10* 3/uL Monocytes Absolute Auto 0.7 0.1-1.2 - X10*3/ uL Eosinophils Absolute Auto 0.2 0.0-0.4 - X10* 3/uL Basophils Absolute Auto 0.1 0.0-0.2 - X10*3/ uL NRBC Abs Auto 0.000 0.0-0.012 - X10*3/uL L ab:Comprehensive [place]. Panel Fast (Order Date - 03/01/2025) (Collection Date & Time - 03/01/2025 10:40 AM) Value Reference Range Sodium 142 135-145 - mmol/L Bilirubin Total 0.2 0.0-1.0 - mg/dL Aspartate Amino Transferase 30 5-31 - U/L Alanine Aminotransferase 23 0-31 - U/L Total Protein 6.7 6.5-8.0 - g/dL Albumin Level 4.0 3.5-5.0 - g/dL Alkaline Phosphatase 70 39-117 - U/L Potassium 3.9 3.3-5.1 - mmol/L Chloride 111 H 96-108 - mmol/L Carbon Dioxide 25 22-29 - mmol/L Anion Gap 10 L 12-20 - Blood Urea Nitrogen 19 H 9-16 - mg/dL Creatinine 0.75 0.5-1.4 - mg/dL Estimated Glomerular Filt Rate > 60 - Glucose Fasting 96 60-99 - mg/dL Calcium 8.5 8.4-10.2 - mg/dL L ab:Lipid Panel (Order Date - 03/01/2025) (Collection Date & Time - 03/01/2025 10:40 AM) Value Reference Range Triglycerides 63 <150 - mg/dL Cholesterol 176 <200 - mg/dL LDL Cholesterol Calculated 95 <100 - mg/dL HDL Cholesterol 69 >40 - mg/dL L ab:UA ClnCatch+Micro w/rflx Cult (Order Date - 03/01/2025) (Collection Date & Time - 03/01/2025 10:40 AM) Value Reference Range Color Urine Yellow - Appearance Urine Clear - PH 5.5 5.0-9.0 - Glucose Urine UA Negative Negative - mg/dL Urine Blood Trace A Negative - Specific [place] - Urine 1.020 1.005-1.025 - Urine Protein Negative Neg-Trace - mg/dL Urine Ketones Negative Negative - mg/dL Nitrite Urine Negative Negative - Leukocyte Esterase Urine Small (1+) A Negative - RBC Urine 0-2 0-2 - /HPF WBC Urine 0-5 0-5 - /HPF Squamous Epithelial Cell Urine 0-2 0-2 - /HP F Bacteria Urine None Seen None Seen - Hyaline Casts Urine 0-2 0-2 - /LPF * Examination: G eneral Examination: GENERAL APPEARANCE: [...] organomegaly , no masses palpable. RECTAL EXAM: n o masses palpable, stool guaiac negative.? FEMALE GENITOURINARY: n ot done. EXTREMITIES: n o clubbing, cyanosis, or edema. NEUROLOGIC: n onfocal, motor strength normal upper and lower extremities, sensory exam intact. Assessment: * Assessment: 1. M ild intermittent asthma without complication - J45.20 (Primary) 2 . O steopenia determined by x-ray - M85.80 3 . C olon cancer screening - Z12.11 4 . D epression screening - Z13.31 5 . S creening mammogram for breast cancer - Z12.31 Plan: * Treatment: 2. O steopenia determined by x-ray Refill ProAir HFA Aerosol Solution, 108 (90 Base) MCG/ACT, 2 puffs as needed, Inhalation, every 6 hrs, 30 days, 1, Refills 4. Notes: will continue to monitor 3. C olon cancer screening L AB: Occult Blood, Stool, Guaiac (Collection Date & Time - 03/08/2025) N egative Value Reference Range O ccult Blood, Stool, Guaiac Neg Notes: guaiac negative??4.?Depression screening? Notes: negative screen??5.?Screening mammogram for breast cancer?Imaging: MAMMOGRAM DIGITAL BILATERAL SCREEN Notes: THE ORDER HAS BEEN FAXED TO [facility]TR[facility] FOR SCHEDULING, PATIENT IS AWARE??6.?Others? Notes: labs reviewed and discussed with patient?? * Immunizations: Influenza High Dose (Not administered - Refused: Patient decision) * Procedure Codes: 8 2270 TEST FOR BLOOD, FECES * Preventive Medicine: Counseling: C are goal follow-up plan: Darlene norwoodnseling for abnormal BMI provided?Yes, Aleksandr brooks Normal BMI Follow-up G iving encouragement to exercise. * * Sign off status: Completed true * Provider: Lyubov Cabrales MD Date: 05/08/2024 Generated for Kaylene kennedy/Luis/Marcel on: 05/26/2024 01:04 PM EST History and Physical Notes * HPI (History of Present Illness) Category Sub-Category Detail Notes Category Not es Symptom(s) patient is a 79 yo female here for visit with review of recent labs and follow up of chronic issues had a little asthma this year with the leaves coming down. only used inhaler 3 times Depression Screening PHQ-9 Little inte rest or [...] BREASTS: No mass, no lump RECTAL EXAM: no masses palpable, stool guaiac negative FEMALE GENITOURINARY: not done ORAL CAVITY: mucosa moist
--- NOTE | ~2025-03-26 | MM_ITS ---
EXAMINATION: MM SCREENING DIGITAL BREAST TOMOSYNTHESIS, BILATERAL CLINICAL INFORMATION: Screening. Asymptomatic. COMPARISON: Comparison made to multiple prior, most recent May 14, 2020, and most remote April 11, 2013. TECHNIQUE: Digital breast tomosynthesis is performed in mediolateral oblique and craniocaudal views along with computer-aided detection (CAD). Synthesized 2D images are generated from the tomosynthesis. FINDINGS: BREAST COMPOSITION: The breasts are heterogeneously dense, which may obscure small masses. BILATERAL BREASTS: No significant masses, suspicious calcifications or other abnormalities are seen in either breast. MM/MM tomosynthesis screening BI IMPRESSION: BILATERAL BREASTS: Negative, no mammographic evidence of malignancy. Normal interval follow-up is recommended in 12 months. ASSESSMENT: BI-RADS: Category 1: Negative RECOMMENDATION: Routine annual mammography screening. FOLLOW-UP: 1 year F/U This examination should not preclude the clinical evaluation of a suspicious palpable abnormality. This patient's information was entered into a reminder system with a target due date for their next mammogram. Electronically signed by: Nguyễn Dillard MD 03/26/2025 07:40 PM [facility]
--- OUTSIDE RECORDS SUMMARY | 2025-03-26 13:04 | XMS_ITS ---
Author Organization Unknown ENCOUNTERS Encounter Performer Location Date Diagnosis Diagnosis Status Pre Admit [address] [address] [phone] Outpatient [address] [address] [id number] [facility] Pre Admit [address] [address] [id number] Outpatient [address] [address] [id number] [facility] Pre Admit [address] [id number] Outpatient [address] [address] [id number] [facility] *Note: Encounters from your own facility or health system may be excluded. Allergies, Adverse Reactions, Alerts Allergen Type Severity Identification Date Medications Name Date Quantity Days Supplied GPI Number
--- OUTSIDE RECORDS SUMMARY | 2025-03-26 13:04 | XMS_ITS | Patient Health Record ---
Author Organization Edy Cabrales MD Address [address] [place], [place] [id number] Care Team Providers Care Compensation And Benefits Administrator Name Role Phone Edy Cabrales Primary Care Provider Allergies No Known Allergies Results Component Value Reference Range Notes Complete Blood Count Auto Di ff Reviewed date:03/01/2025 12:43:52 PM Interpretation: Performing Lab:[facility], [address] [place] [phone] Notes/Report: White Blood Count 6.1 4.8-10.8 X10*3/uL [...] NRBC Abs Auto 0.000 0.0-0.012 X10*3/uL Comprehensive [place]. Panel Fa st Reviewed date:03/01/2025 12:19:52 PM Interpretation: Performing Lab:[facility], [address] [place] [phone] Notes/Report: Sodium 142 135-145 mmol/L Potassium 3.9 [...] Panel Reviewed date:03/01/2025 12:07:59 PM Interpretation: Performing Lab:[facility], [address] [place] [phone] Notes/Report: Triglycerides 63 <150 mg/dL Desirable Triglyceride: [...] t Reviewed date:03/01/2025 12:20:46 PM Interpretation: Performing Lab:[facility], [address] [place] [phone] Notes/Report: Urine, Clean Catch Color Urine Yellow Appearance Urine Clear PH 5.5 5.0-9.0 Glucose Urine UA Negative Negative mg/dL Urine Blood Trace Negative Specific [place] - Urine 1.020 1.005-1.025 Urine Protein Negative Neg-Trace mg/dL Urine Ketones Negative Negative mg/dL Nitrite Urine Negative Negative Leukocyte Esterase Urine Small (1+) Negative RBC Urine 0-2 0-2 /HPF WBC Urine 0-5 0-5 /HPF Squamous Epithelial Cell Urine 0-2 0-2 /HPF Bacteria Urine None Seen None Seen Hyaline Casts Urine 0-2 0-2 /LPF Occult Blood, Stool, Guaiac Reviewed date:03/08/2025 11:51:55 AM Interpretation:Negative Performing Lab: Notes/Report: Negative Occult Blood, Stool, Guaiac Neg Urine Culture Reviewed date:03/04/2025 12:02:06 PM Interpretation: Performing Lab:[facility], [address] [place] [phone] Notes/Report: Urine Culture No growth. Reason For Referral No Information Medications Medication [...] Fluarix Quadrivalent - 150 Unknown 02/28/2024 Refused Influenza High Dose Unknown 03/08/2025 Refused Social [...] Problem Status W/U Status Risk Notes Problem 067629787 Mild intermitten t asthma without complication (J45.20) Active confirmed Problem 137251971 History of hemat uria (Z87.448) Active confirmed Problem 882495596 Pure hypercholesterolemia (E78.00) Active confirmed Problem 007024234 Osteopenia deter mined by x-ray (M85.80) Active confirmed Problem 703079081 Age-related inci pient cataract, unspecified laterality (H25.099) Active confirmed Vital Signs Blood pressure diastolic 76 mm Hg 03/08/2025 christine ght is up 15 pounds since 03-06-24 Height 61 in 03/08/2025 weight is up 15 pounds since 03-06-24 Blood pressure systolic 132 mm Hg 03/08/2025 weig ht is up 15 pounds since 03-06-24 Weight 166 lbs 03/08/2025 weight is up 15 pounds since 03-06-24 BMI 31.36 kg/m2 03/08/2025 weight is up 15 pounds since 03-06-24 Encounters Encounter Location Date Provider Diagnosis Edy Cabrales MD [address] [place], [place] [phone] 03/01/2025 Edy Cabrales Pure hypercholestero lemia E78.00 Edy Cabrales MD [address] [place], [place] [id number] 03/08/2025 Edy Cabrales Osteopenia determine d by x-ray M85.80 ; Mild intermittent asthma without complication J45.20 ; Colon cancer screening Z12.11 ; Depression screening Z13.31 and Screening mammogram for breast cancer Z.31 Assessments Encounter Date Diagnosis (ICD Code) Assessment Notes Treatment Notes Treatment Clinical Notes Section Notes 03/01/2025 Pure hypercholesterolemia (ICD-10 - E78.00) 03/08/2025 Osteopenia determine d by x-ray (ICD-10 - M85.80) will continue to monitor 03/08/2025 Mild intermittent asthma without complication (ICD-10 - J45.20) stable, will continue current regiment 03/08/2025 Colon cancer screeni ng (ICD-10 - Z12.11) guaiac negative 03/08/2025 Depression screening (ICD-10 - Z13.31) negative screen 03/08/2025 Screening mammogram for breast cancer (ICD-10 - Z12.31) THE ORDER HAS BEEN FAXED TO [facility] FOR SCHEDULING, PATIENT IS AWARE 03/08/2025 Other labs reviewed and discussed with patient Plan Of Treatment Pending Test Test Name Order Date Electrocardiogram (EKG) 09/15/2015 Electrocardiogram (EKG) 09/17/2016 XR CHEST 2 VIEW PA & LAT 03/21/2023 MAMMOGRAM DIGITAL BILATERAL SCREEN 03/08 Future Test Test Name Order Date BONE DENSITY DEXA 10/23/2020 Next Appt Details Provider Name:Edy moreland, 03/06/2026 07:45:00 AM, [address], [address], [place], [place], [phone], Provider Name:Edy moreland, 03/13/2026 09:30:00 AM, [address], [address], [place], [place], [id number], Insurance Providers Payer Name Payer Address Payer Phone Subscriber Number Group Number Insured Name Patient Relationship to Insured Coverage Start Date Coverage End Date MEDICARE [employer] [address] [place] [address] [id number] Lynne Ventura Self - patient is the insured MEDEX BCBS OF [facility] [address] [place] [address] [id number] Lynne Ventura Self - patient is the insured Medical (General) History Medical History History ICD Code colonoscopy 08/2009 hyperplastic polyp, d ue in 2019 colonoscopy 2020 negative hematuria work up with cysto
--- OUTSIDE RECORDS SUMMARY | 2025-03-26 13:05 | XMS_ITS | Patient Health Record ---
[facility] Address [address] [place] [address] Care Team Providers Care Field Artillery Cannoneer Name Role Phone Edy Cabrales MD Primary Care Provider Dre Parker [phone] Allergies Allergen (clinical drug ingredient) Drug/Non Drug [...] Problem Acquired hammer toe of right foot (8243019841212 105) Other hammer toe(s) (acquired), right foot (M20.41) Active confirmed Plan Of Treatment Pending Test Test Name Order Date X ray : Foot, left 3V 08/07/2018 X ray : Foot, right 3V 08/07/2018 [id number] OF HEMATOMA/FLUID 019 [id number] OF HEMATOMA/FLUID 018 [address]011- Nail Unit Biopsy 11/29/2017 Insurance Providers Payer Name Payer Address Payer Phone Subscriber Number Group Number Insured Name Patient Relationship to Insured Coverage Start Date Coverage End Date Medicare National [employer]t [employer] [address] [place] [address] [id number] Lynne Ventura Self - patient is the insured 2 [employer] Blue [employer] [address] [place] [address] [id number] Lynne Ventura Self - patient is the insured Medical (General) History Medical History History ICD Code Arthritis Back,Hip,and Knee pain Surgical History Surgery Date(Month/Year) tonsillectomy 1954
--- OUTSIDE RECORDS SUMMARY | 2025-03-26 13:05 | XMS_ITS | Patient Health Record ---
Author Organization [facility] Address [address] [place] [address] Care Team Providers Care Plaster Caster Name Role Phone Edy Cabrales MD Primary Care Provider Elliot Servin Jr [phone] Reason For Referral No Information Medications Medication [...] stop date) Never Smoker NA - NA Social History Drugs/Alcohol: Social Info Question Answer Notes Alcohol Screen Did you have a drink containing alcohol in the past year? Yes How often did you have a drink containing alcohol in the past year? 2 to 4 times a month (2 points) How many drinks did you have on a typical day when you were drinking in the past year? 1 or 2 drinks (0 point) How often did you have 6 or more drinks on one occasion in the past year? Never (0 point) Points 2 Interpretation Negative Tobacco Use: Social Info Question Answer Notes Tobacco Use/Smoking Patient is a nonsmoker Additional Details Category Social Info Options Details Miscellaneous: Marital status: Occupation: Retired Problems Problem Type SNOMED Code ICD Code Onset Dates Problem Status W/U Status Risk Notes Problem Colon cancer screening (529025605) Colon cancer screening (Z12.11) Active confirmed Problem [facility] current use of non-steroidal anti-inflammat ory drug (8248919698077 03) [facility] current use of non-steroidal anti-inflammat ories (NSAID) (Z79.1) Active confirmed Plan Of Treatment Future Test Test Name Order Date COLONOSCOPY 10/08/2020 Insurance Providers Payer Name Payer Address Payer Phone Subscriber Number Group Number Insured Name Patient Relationship to Insured Coverage Start Date Coverage End Date MEDICARE OF [place] [address] [place] [address] [id number] SAFIA GORDON Self - patient is the insured MEDEX ATT[employer] CLAIMS [address] [place] [address] [id number] SAFIA GORDON Self - patient is the insured Medical (General) History Medical History History ICD Code seasonal allergies asthma Surgical History Surgery Date(Month/Year) tonsillectomy and adenoidectomy
== END 2025-03-26 10:29 | disposition home or self-care (01) ==
LOC: HO.MAMMO 10:28
PROVIDERS: PCP Internal Medicine; Visit Provider Internal Medicine
DX: Z12.31 Encounter for screening mammogram for malignant neoplasm of breast (principal)
CPT/HCPCS: 77063; 77067

== ENCOUNTER → 2025-03-26 10:45 | Outpatient (BNV) | payer MEDICARE, SELFPAY | PROVIDERS: PCP Internal Medicine; Visit Provider Radiology Body Imaging | DX: Z12.31 Encounter for screening mammogram for malignant neoplasm of breast (principal) | CPT/HCPCS: 77063; 77067 ==